=== PATIENT | female | born 1995 | race Caucasian/White ===

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

== ENCOUNTER → 2017-05-06 | Outpatient (CLI) | payer OTHER | LOC: M LAB 14:43 | DX: M54.5 Low back pain (principal) | CPT/HCPCS: 72114 ==

== ENCOUNTER → 2017-07-14 | Outpatient (CLI) | payer OTHER ==
[2017-07-14 16:01] LABS: BASO % 0.3 % (0.0-1.0); EOS % 0.5 % (0.0-3.0); HEMATOCRIT 45.5 % (36.0-47.0); HEMOGLOBIN 15.4 g/dl (12.0-15.5); IMMATURE GRANULOCYTE % 0.1 % (0-3.0); LYMPH # 2.2 10^3/uL (1.5-6.5); LYMPH % 29.3 % (24.0-44.0); MEAN CORPUSCULAR HEMOGLOBIN 31.3 pg (27.0-33.0); MEAN CORPUSCULAR HGB CONC 33.8 g/dl (32.0-36.5); MEAN CORPUSCULAR VOLUME 92.5 fl (80.0-96.0); MONO # 0.5 10^3/uL (0.0-0.8); MONO % 6.5 % (0.0-5.0); NEUTROPHILS # 4.8 10^3/uL (1.8-7.7); NEUTROPHILS % 63.3 % (36.0-66.0); PLATELET COUNT, AUTOMATED 205 10^3/uL (150-450); RED BLOOD COUNT 4.92 10^6/uL (4.00-5.40); RED CELL DISTRIBUTION WIDTH 12.3 % (11.5-14.5); WHITE BLOOD COUNT 7.6 10^3/uL (4.0-10.0)
[2017-07-14 16:26] LABS: ALBUMIN 4.1 GM/DL (3.2-5.2); ALBUMIN/GLOBULIN RATIO 1.05 (1.00-1.93); ALKALINE PHOSPHATASE 57 U/L (45-117); ALT/SGPT 64 U/L (12-78); ANION GAP 6 MEQ/L (8-16); AST/SGOT 49 U/L (7-37); BILIRUBIN,TOTAL 0.4 MG/DL (0.2-1.0); BLOOD UREA NITROGEN 10 MG/DL (7-18); CALCIUM LEVEL 9.3 MG/DL (8.5-10.1); CARBON DIOXIDE LEVEL 28 MEQ/L (21-32); CHLORIDE LEVEL 110 MEQ/L (98-107); CREATININE FOR GFR 0.68 MG/DL (0.55-1.30); GLUCOSE, FASTING 72 MG/DL (70-100); POTASSIUM SERUM 4.1 MEQ/L (3.5-5.1); SODIUM LEVEL 144 MEQ/L (136-145)
[2017-07-19 14:11] LABS: HEPATITIS C QUANTITATION 34420 IU/mL (.)
== END ==
LOC: M LAB 15:25
DX: R76.0 Raised antibody titer (principal)
CPT/HCPCS: 80053

== ENCOUNTER 2017-08-17 17:08 | Emergency (ER) | payer OTHER | END 2017-08-17 21:44 | disposition left against medical advice (07) | LOC: M ED 17:08 | DX: Z53.29 Procedure and treatment not carried out because of patient's decision for other reasons (principal) ==

== ENCOUNTER 2017-09-07 17:14 | Emergency (ER) | payer OTHER ==
[2017-09-07 18:14] LABS: HEMATOCRIT 42.2 % (36.0-47.0); HEMOGLOBIN 14.1 g/dl (12.0-15.5); MEAN CORPUSCULAR HEMOGLOBIN 30.9 pg (27.0-33.0); MEAN CORPUSCULAR HGB CONC 33.4 g/dl (32.0-36.5); MEAN CORPUSCULAR VOLUME 92.5 fl (80.0-96.0); PLATELET COUNT, AUTOMATED 157 10^3/uL (150-450); RED BLOOD COUNT 4.56 10^6/uL (4.00-5.40); RED CELL DISTRIBUTION WIDTH 13.3 % (11.5-14.5); WHITE BLOOD COUNT 10.5 10^3/uL (4.0-10.0)
[2017-09-07 18:26] LABS: AMPHETAMINES LEVEL URINE NEGATIVE (NEGATIVE); BARBITURATES URINE NEGATIVE (NEGATIVE); BENZODIAZEPINES URINE NEGATIVE (NEGATIVE); CANNABINOIDS URINE POSITIVE (NEGATIVE); COCAINE METABOLITE URINE NEGATIVE (NEGATIVE); METHADONE URINE NEGATIVE (NEGATIVE); OPIATES URINE POSITIVE (NEGATIVE); PHENCYCLIDINE URINE NEGATIVE (NEGATIVE)
[2017-09-07 18:35] LABS: ALBUMIN 3.5 GM/DL (3.2-5.2); ALKALINE PHOSPHATASE 62 U/L (45-117); ALT/SGPT 26 U/L (12-78); ANION GAP 9 MEQ/L (8-16); AST/SGOT 36 U/L (7-37); BILIRUBIN,DIRECT 0.1 MG/DL (0.0-0.2); BILIRUBIN,TOTAL 0.4 MG/DL (0.2-1.0); BLOOD UREA NITROGEN 8 MG/DL (7-18); CALCIUM LEVEL 8.6 MG/DL (8.5-10.1); CARBON DIOXIDE LEVEL 26 MEQ/L (21-32); CHLORIDE LEVEL 108 MEQ/L (98-107); CREATININE FOR GFR 0.77 MG/DL (0.55-1.30); ETHYL ALCOHOL (ETHANOL) < 0.003 % (0.000-0.010); GLUCOSE, FASTING 88 MG/DL (70-100); POTASSIUM SERUM 3.5 MEQ/L (3.5-5.1); SALICYLATE LEVEL 1.9 MG/DL (5.0-30.0); SODIUM LEVEL 143 MEQ/L (136-145); THYROID STIMULATING HORMONE 0.468 uIU/ML (0.463-3.98); TOTAL PROTEIN 7.4 GM/DL (6.4-8.2)
[2017-09-07 18:41] LABS: ACETAMINOPHEN LEVEL < 2.0 UG/ML (10.0-30.0)
[2017-09-07 19:09] LABS: CONTROL LINE HCG INT CTR LINE PRESENT; HCG, SERUM QUALITATIVE NEGATIVE (NEGATIVE)
== END 2017-09-07 19:47 | disposition home or self-care (01) ==
LOC: M ED 17:14
DX: F39 Unspecified mood [affective] disorder (principal); Z79.3 Long term (current) use of hormonal contraceptives
CPT/HCPCS: 80320

== ENCOUNTER 2018-06-08 23:42 | Emergency (ER) | payer OTHER ==
[~2018-06-08] VITALS: Ht 170.2 cm; Wt 68.2 kg
[~2018-06-08 23:42] MED LIST changes: +NEXP1IMP SC
[2018-06-09] MEDS ORDERED: MACR100C43 PO (01:12)
[2018-06-09] MEDS ORDERED: PYRI1TAB5 PO (01:12)
[2018-06-09] MEDS ORDERED: PHENAZOPYRIDINE 100 MG TAB PO ONE (01:15)
[2018-06-09] MEDS ORDERED: NITROFURANTOIN (MACROBID) 100 MG CAP PO ONE (01:15)
[2018-06-09 01:30] VITALS: BP 125/75
== END 2018-06-09 01:31 | disposition home or self-care (01) ==
LOC: M ED 23:42
DX: N39.0 Urinary tract infection, site not specified (principal); J45.909 Unspecified asthma, uncomplicated; F41.9 Anxiety disorder, unspecified; Z79.3 Long term (current) use of hormonal contraceptives

== ENCOUNTER 2018-09-20 17:11 | Emergency (ER) | payer OTHER ==
[~2018-09-20] VITALS: Ht 172.7 cm; Wt 65.9 kg
[~2018-09-20 17:11] MED LIST changes: +MACR100C43 PO; +PYRI1TAB5 PO
[2018-09-20 17:12] VITALS: BP 142/100
[2018-09-20] MEDS ORDERED: cloNIDine HCL 0.3 MG/24 HR PATCH TOP STA (17:31)
[2018-09-20] MEDS ORDERED: KETOROLAC 30 MG/ML VIAL (J1885) IV ONE (17:45)
[2018-09-20] MEDS ORDERED: NS 1,000 ML IV ONE (17:45)
[2018-09-20] MEDS ORDERED: PROMETHAZINE INJ 25 MG/ML VIAL (J2550) IV ONE (17:45)
[2018-09-20] MEDS ORDERED: KETOROLAC 60 MG/2 ML VIAL (J1885) IM ONE (19:00)
[2018-09-20] MEDS ORDERED: PROMETHAZINE INJ 25 MG/ML VIAL (J2550) IM ONE (19:00)
[2018-09-20] MEDS ORDERED: REGL10TA6 PO (19:02)
[2018-09-20] MEDS ORDERED: KETO10TAB PO (19:02)
== END 2018-09-20 19:30 | disposition home or self-care (01) ==
LOC: M ED 17:11
DX: F11.10 Opioid abuse, uncomplicated (principal); B19.20 Unspecified viral hepatitis C without hepatic coma; Z79.3 Long term (current) use of hormonal contraceptives
CPT/HCPCS: 96372; 99283; J1885

== ENCOUNTER 2018-09-21 12:27 | Emergency (ER) | payer OTHER ==
[~2018-09-21] VITALS: Ht 172.7 cm; Wt 65.9 kg
[~2018-09-21 12:27] MED LIST changes: +KETO10TAB PO; +REGL10TA6 PO
[2018-09-21 12:28] VITALS: BP 136/94
== END 2018-09-21 13:30 | disposition left against medical advice (07) ==
LOC: M ED 12:27
DX: Z53.29 Procedure and treatment not carried out because of patient's decision for other reasons (principal)

== ENCOUNTER → 2019-01-09 | Outpatient (CLI) | payer OTHER ==
[2019-01-09 23:29] LABS: HIV 1&2 SCREEN CENTAUR NEGATIVE (NEGATIVE)
[2019-01-11 08:06] LABS: HSV TYPE II IgG SPECIFIC <0.91 index (0.00-0.90)
[2019-01-11 10:29] LABS: HEPATITIS C VIRUS ABY INDEX > 11.0 INDEX (<0.8)
== END ==
LOC: M LAB 16:14
PROVIDERS: ATTEND Nurse Practitioner Family
DX: Z11.3 Encounter for screening for infections with a predominantly sexual mode of transmission (principal)

== ENCOUNTER 2019-03-10 16:08 | Emergency (ER) | payer OTHER ==
[~2019-03-10] VITALS: Ht 170.2 cm; Wt 65.9 kg
[2019-03-10 17:10] LABS: BASO % 0.2 % (0.0-1.0); EOS % 0.2 % (0.0-3.0); HEMATOCRIT 48.7 % (36.0-47.0); HEMOGLOBIN 16.2 g/dl (12.0-15.5); LYMPH % 24.6 % (24.0-44.0); MEAN CORPUSCULAR HEMOGLOBIN 29.7 pg (27.0-33.0); MEAN CORPUSCULAR HGB CONC 33.3 g/dl (32.0-36.5); MEAN CORPUSCULAR VOLUME 89.2 fl (80.0-96.0); MONO # 0.5 10^3/uL (0.0-0.8); MONO % 5.7 % (0.0-5.0); NEUTROPHILS # 5.5 10^3/uL (1.5-8.5); NEUTROPHILS % 68.9 % (36.0-66.0); PLATELET COUNT, AUTOMATED 269 10^3/uL (150-450); RED BLOOD COUNT 5.46 10^6/uL (4.00-5.40)
[2019-03-10] MEDS ORDERED: ONDANSETRON 4 MG ORAL DISINTEGRATING TAB (Q0162 PER 1MG) PO ONE (17:15)
[2019-03-10] MEDS ORDERED: ONDA4TAB6 PO (17:25)
[2019-03-10 17:39] LABS: ALBUMIN 4.4 GM/DL (3.2-5.2); ALT/SGPT 8 U/L (12-78); BILIRUBIN,TOTAL 0.3 MG/DL (0.2-1.0); BLOOD UREA NITROGEN 9 MG/DL (7-18); CALCIUM LEVEL 9.6 MG/DL (8.5-10.1); CARBON DIOXIDE LEVEL 22 MEQ/L (21-32); CHLORIDE LEVEL 110 MEQ/L (98-107); CREATININE FOR GFR 0.74 MG/DL (0.55-1.30); GLOMERULAR FILTRATION RATE > 60.0 (>60); GLUCOSE, FASTING 107 MG/DL (70-100); POTASSIUM SERUM 3.9 MEQ/L (3.5-5.1); SODIUM LEVEL 142 MEQ/L (136-145); TOTAL PROTEIN 8.3 GM/DL (6.4-8.2)
[2019-03-10 17:43] VITALS: BP 114/86
[2019-03-13 10:00] LABS: HEPATITIS A ANTIBODY IGM NEGATIVE (NEGATIVE); HEPATITIS B CORE ANTIBODY IGM NEGATIVE (NEGATIVE); HEPATITIS B SURFACE ANTIGEN NEGATIVE (NEGATIVE)
[2019-03-13 10:01] LABS: HEPATITIS C VIRUS ABY INDEX > 11.0 INDEX (<0.8)
== END 2019-03-10 17:35 | disposition home or self-care (01) ==
LOC: M ED 16:08
DX: A09 Infectious gastroenteritis and colitis, unspecified (principal); F17.200 Nicotine dependence, unspecified, uncomplicated; Z87.898 Personal history of other specified conditions; Z79.3 Long term (current) use of hormonal contraceptives; Z88.8 Allergy status to other drugs, medicaments and biological substances
CPT/HCPCS: 80053; 81001; 84702; 85025; 86705; 86709; 86803; 87086; 87340; 87521; 99283; Q0162

== ENCOUNTER 2019-05-07 16:32 | Emergency (ER) | payer OTHER ==
[~2019-05-07] VITALS: Ht 170.2 cm; Wt 67.2 kg
[~2019-05-07 16:32] MED LIST changes: +ONDA4TAB6 PO
[2019-05-07] MEDS ORDERED: METH10TA2 PO (16:48)
[2019-05-07] MEDS ORDERED: METH-872 PO (17:25)
[2019-05-07] MEDS ORDERED: METHADONE 10 MG TAB (S0109) PO ONE (17:30)
[2019-05-07 18:07] LABS: INFLUENZA A AMPLIFICATION NEGATIVE (NEGATIVE); INFLUENZA B AMPLIFICATION NEGATIVE (NEGATIVE)
[2019-05-07] MEDS ORDERED: ONDA4TAB6 PO (18:18)
[2019-05-07] MEDS ORDERED: ONDANSETRON 4 MG ORAL DISINTEGRATING TAB (Q0162 PER 1MG) As Ordered ONE (18:29)
[2019-05-07] MEDS ORDERED: ONDANSETRON 4 MG ORAL DISINTEGRATING TAB (Q0162 PER 1MG) PO ONE (18:30)
[2019-05-07 18:35] VITALS: BP 126/69
== END 2019-05-07 18:47 | disposition home or self-care (01) ==
LOC: M ED 16:32
DX: F11.23 Opioid dependence with withdrawal (principal); R11.2 Nausea with vomiting, unspecified; R10.30 Lower abdominal pain, unspecified; J45.909 Unspecified asthma, uncomplicated; Z86.19 Personal history of other infectious and parasitic diseases; F17.200 Nicotine dependence, unspecified, uncomplicated; F12.10 Cannabis abuse, uncomplicated; Z79.3 Long term (current) use of hormonal contraceptives; Z79.899 Other long term (current) drug therapy; Z88.8 Allergy status to other drugs, medicaments and biological substances
CPT/HCPCS: 87502; 99283; Q0162

== ENCOUNTER 2019-05-15 20:02 | Emergency (ER) | payer OTHER ==
[~2019-05-15] VITALS: Ht 170.2 cm; Wt 65.9 kg
[2019-05-15 20:02] VITALS: BP 136/72
[~2019-05-15 20:02] MED LIST changes: +METH-872 PO; +METH10TA2 PO
[2019-05-15] MEDS ORDERED: ROBA750T4 PO (21:56)
[2019-05-15] MEDS ORDERED: PRED10TA2 PO (21:56)
[2019-05-15] MEDS: methocarbamoL 750 MG TAB PO ONE (21:59)
[2019-05-15] MEDS ORDERED: predniSONE 20 MG TAB PO ONE (22:00)
== END 2019-05-15 22:03 | disposition home or self-care (01) ==
LOC: M ED 20:02
DX: M62.830 Muscle spasm of back (principal); G89.29 Other chronic pain; M54.9 Dorsalgia, unspecified; Z86.19 Personal history of other infectious and parasitic diseases; F11.10 Opioid abuse, uncomplicated; Z79.3 Long term (current) use of hormonal contraceptives; Z79.899 Other long term (current) drug therapy; Z88.8 Allergy status to other drugs, medicaments and biological substances

== ENCOUNTER 2019-05-17 03:10 | Emergency (ER) | payer OTHER ==
[~2019-05-17] VITALS: Ht 170.2 cm; Wt 68.0 kg
[~2019-05-17 03:10] MED LIST changes: +PRED10TA2 PO; +ROBA750T4 PO
[2019-05-17] MEDS ORDERED: METHOCARBAMOL 1,000 MG/10 ML VIAL (J2800) IM ONE (04:15)
--- NOTE | 2019-05-17 04:31 | REPVR ---
PROCEDURE INFORMATION: Exam: CT Lumbar Spine Without Contrast Exam date and time: 05/17/2019 3:23 AM Age: 23 years old Clinical indication: Low back pain TECHNIQUE: Imaging protocol: Computed tomography images of the lumbar spine without contrast. Radiation optimization: All CT scans at this facility use at least one of these dose optimization techniques: automated exposure control; mA and/or kV adjustment per patient size (includes targeted exams where dose is matched to clinical indication); or iterative reconstruction. COMPARISON: CR Spine,LS wBENDING MIN 6 VIEWS 05/06/2017 3:07 PM FINDINGS: Vertebrae: No acute fracture. Normal alignment. Discs/Spinal canal/Neural foramina: No disc herniations. No spinal canal stenosis. No neural foraminal narrowing. Soft tissues: Unremarkable. IMPRESSION: No acute findings. Electronically signed by: Jean Alcaraz On 05/17/2019 04:30:42 AM
[2019-05-17 04:44] VITALS: BP 110/65
[2019-05-17] MEDS ORDERED: KETOROLAC 60 MG/2 ML VIAL (J1885) IM ONE (04:45)
[2019-05-17] MEDS ORDERED: ONDANSETRON 4 MG ORAL DISINTEGRATING TAB (Q0162 PER 1MG) As Ordered ONE (05:06)
[2019-05-17] MEDS ORDERED: ONDANSETRON 4 MG ORAL DISINTEGRATING TAB (Q0162 PER 1MG) PO ONE (05:15)
[2019-05-18] MEDS ORDERED: MACR100C43 PO (16:57)
[2019-05-18] MEDS ORDERED: LIDO5DIS41 TOP (16:57)
== END 2019-05-17 05:23 | disposition home or self-care (01) ==
LOC: M ED 03:10
DX: M54.5 Low back pain (principal); F11.10 Opioid abuse, uncomplicated; Z86.19 Personal history of other infectious and parasitic diseases; Z79.899 Other long term (current) drug therapy; Z88.8 Allergy status to other drugs, medicaments and biological substances
CPT/HCPCS: 72131; 96372; 99283; J1885; J2800; Q0162

== ENCOUNTER 2019-05-18 15:38 | Emergency (ER) | payer OTHER ==
[~2019-05-18] VITALS: Ht 170.2 cm; Wt 66.9 kg
[2019-05-18] MEDS ORDERED: LIDOCAINE 5% (LIDODERM) PATCH TD ONE (16:30)
[2019-05-18 16:48] LABS: APPEARANCE, URINE CLEAR (CLEAR); BACTERIA, URINE AUTO 1+ (NEGATIVE); BILIRUBIN, URINE AUTO 2+ (NEGATIVE); BLOOD, URINE BLOOD NEGATIVE (NEGATIVE); COLOR, URINE YELLOW (YELLOW); GLUCOSE, URINE (UA) AUTO NEGATIVE (NEGATIVE); KETONE, URINE AUTO NEGATIVE (NEGATIVE); LEUKOCYTE ESTERASE, URINE AUTO 1+ (NEGATIVE); MUCUS, URINE SMALL (NEGATIVE); NITRITE, URINE AUTO NEGATIVE (NEGATIVE); PROTEIN, URINE AUTO NEGATIVE (NEGATIVE); RBC, URINE AUTO 2 /HPF (0-3); SQUAMOUS EPITHELIAL CELL UR AU 1 /HPF (0-6); UROBILINOGEN, URINE AUTO 0.2 mg/dL (0.0-2.0); WBC, URINE AUTO 5 /HPF (0-3)
[2019-05-18 16:53] LABS: BASO % 0.2 % (0.0-1.0); EOS % 0.1 % (0.0-3.0); HEMATOCRIT 42.2 % (36.0-47.0); HEMOGLOBIN 14.1 g/dl (12.0-15.5); LYMPH # 1.6 10^3/uL (1.5-5.0); LYMPH % 9.4 % (24.0-44.0); MEAN CORPUSCULAR HEMOGLOBIN 29.5 pg (27.0-33.0); MEAN CORPUSCULAR HGB CONC 33.4 g/dl (32.0-36.5); MEAN CORPUSCULAR VOLUME 88.3 fl (80.0-96.0); MONO # 0.7 10^3/uL (0.0-0.8); NEUTROPHILS # 14.2 10^3/uL (1.5-8.5); NEUTROPHILS % 85.6 % (36.0-66.0); PLATELET COUNT, AUTOMATED 301 10^3/uL (150-450); RED BLOOD COUNT 4.78 10^6/uL (4.00-5.40); WHITE BLOOD COUNT 16.6 10^3/uL (4.0-10.0)
[2019-05-18] MEDS ORDERED: LIDO5DIS41 TOP (16:57)
[2019-05-18] MEDS ORDERED: MACR100C43 PO (16:57)
[2019-05-18 16:59] VITALS: BP 140/78
[2019-05-18] MEDS ORDERED: **NOTE PATIENT COMMENT** MISC XX SCH (21:00)
== END 2019-05-18 17:05 | disposition home or self-care (01) ==
LOC: M ED 15:38
DX: M54.5 Low back pain (principal); N39.0 Urinary tract infection, site not specified; X50.1XXA Overexertion from prolonged static or awkward postures, initial encounter; Y92.89 Other specified places as the place of occurrence of the external cause; Y93.89 Activity, other specified; Y99.0 Civilian activity done for income or pay; Z79.3 Long term (current) use of hormonal contraceptives; Z79.899 Other long term (current) drug therapy; Z88.8 Allergy status to other drugs, medicaments and biological substances

== ENCOUNTER 2019-05-30 16:54 | Emergency (ER) | payer OTHER ==
[~2019-05-30] VITALS: Ht 170.2 cm; Wt 66.6 kg
[~2019-05-30 16:54] MED LIST changes: +LIDO5DIS41 TOP
[2019-05-30] MEDS ORDERED: CYCL10TA PO (18:11)
[2019-05-30 18:18] VITALS: BP 126/70
== END 2019-05-30 18:24 | disposition home or self-care (01) ==
LOC: M ED 16:54
DX: M54.5 Low back pain (principal); Z79.3 Long term (current) use of hormonal contraceptives; Z79.899 Other long term (current) drug therapy; Z88.8 Allergy status to other drugs, medicaments and biological substances

== ENCOUNTER 2019-08-07 10:31 | Emergency (ER) | payer OTHER ==
[~2019-08-07] VITALS: Ht 172.7 cm; Wt 66.2 kg
[~2019-08-07 10:31] MED LIST changes: +CYCL-707 PO
[2019-08-07 10:32] VITALS: BP 109/66
[2019-08-07] MEDS ORDERED: BUPR75TA5 (10:40)
[2019-08-07] MEDS ORDERED: METH10TA2 PO (10:40)
[2019-08-07] MEDS ORDERED: KETOROLAC 30 MG/ML 1ML VIAL IM ONE (11:00)
[2019-08-07] MEDS ORDERED: methocarbamoL 750 MG TAB PO ONE (11:00)
[2019-08-07] MEDS ORDERED: NAPR-885 PO (11:36)
[2019-08-07] MEDS ORDERED: METH1TAB40 PO (11:36)
[2019-08-07] MEDS ORDERED: ONDANSETRON 4 MG ORAL DISINTEGRATING TAB PO ONE (11:45)
== END 2019-08-07 11:43 | disposition home or self-care (01) ==
LOC: M ED 10:31
DX: S39.012A Strain of muscle, fascia and tendon of lower back, initial encounter (principal); X58.XXXA Exposure to other specified factors, initial encounter; Y92.89 Other specified places as the place of occurrence of the external cause; Z88.8 Allergy status to other drugs, medicaments and biological substances; Z79.890 Hormone replacement therapy; Z79.3 Long term (current) use of hormonal contraceptives
CPT/HCPCS: 96372; 99282; J1885; Q0162

== ENCOUNTER 2019-08-20 14:45 | Emergency (ER) | payer OTHER ==
[~2019-08-20] VITALS: Ht 172.7 cm; Wt 64.6 kg
[~2019-08-20 14:45] MED LIST changes: +BUPR75TA5; +METH1TAB40 PO; +NAPR-885 PO
[2019-08-20] MEDS ORDERED: NS 1,000 ML IV ONE (16:30)
[2019-08-20] MEDS ORDERED: ONDANSETRON 4MG/2ML VIAL IV ONE (16:30)
[2019-08-20] MEDS ORDERED: KETOROLAC 30 MG/ML 1ML VIAL IV ONE (16:30)
[2019-08-20 17:09] LABS: BASO % 0.3 % (0.0-1.0); EOS # 0.1 10^3/uL (0.0-0.5); HEMATOCRIT 39.3 % (36.0-47.0); HEMOGLOBIN 12.5 g/dl (12.0-15.5); LYMPH # 2.5 10^3/uL (1.5-5.0); LYMPH % 36.6 % (24.0-44.0); MEAN CORPUSCULAR HEMOGLOBIN 27.2 pg (27.0-33.0); MEAN CORPUSCULAR HGB CONC 31.8 g/dl (32.0-36.5); MEAN CORPUSCULAR VOLUME 85.6 fl (80.0-96.0); MONO # 0.4 10^3/uL (0.0-0.8); MONO % 6.1 % (0.0-5.0); NEUTROPHILS # 3.7 10^3/uL (1.5-8.5); NEUTROPHILS % 55.6 % (36.0-66.0); PLATELET COUNT, AUTOMATED 365 10^3/uL (150-450); RED BLOOD COUNT 4.59 10^6/uL (4.00-5.40); WHITE BLOOD COUNT 6.7 10^3/uL (4.0-10.0)
[2019-08-20 17:40] LABS: ALT/SGPT 11 U/L (12-78); BILIRUBIN,DIRECT < 0.1 MG/DL (0.0-0.2); BILIRUBIN,TOTAL 0.2 MG/DL (0.2-1.0); BLOOD UREA NITROGEN 10 MG/DL (7-18); CALCIUM LEVEL 8.8 MG/DL (8.5-10.1); CARBON DIOXIDE LEVEL 27 MEQ/L (21-32); CHLORIDE LEVEL 104 MEQ/L (98-107); CREATININE FOR GFR 0.71 MG/DL (0.55-1.30); GLOMERULAR FILTRATION RATE > 60.0 (>60); GLUCOSE, FASTING 79 MG/DL (70-100); LIPASE 70 U/L (73-393); POTASSIUM SERUM 3.8 MEQ/L (3.5-5.1); SODIUM LEVEL 137 MEQ/L (136-145); TOTAL PROTEIN 7.8 GM/DL (6.4-8.2)
[2019-08-20] MEDS ORDERED: ZOFR4TAB16 PO (18:43)
[2019-08-20 18:45] VITALS: BP 114/67
--- NOTE | 2019-08-20 23:10 | REP ---
ABDOMINAL SERIES: Supine and erect views of the abdomen demonstrate no free air and no evidence of bowel obstruction. There is moderate diffuse fecal material seen throughout the colon. No dilated small bowel loops are seen. No abnormal calcifications are seen. An accompanying view of the chest demonstrates no acute infiltrate. Heart and mediastinum are within normal limits. IMPRESSION: No free air or obstruction. Moderate diffuse fecal material throughout the colon. No acute infiltrate in either lung. Electronically Signed by Jeevan Kiran MD 08/21/2019 01:14 P
== END 2019-08-20 19:00 | disposition home or self-care (01) ==
LOC: M ED 14:45
DX: K52.9 Noninfective gastroenteritis and colitis, unspecified (principal); J45.909 Unspecified asthma, uncomplicated; B19.20 Unspecified viral hepatitis C without hepatic coma; F19.10 Other psychoactive substance abuse, uncomplicated; Z79.891 Long term (current) use of opiate analgesic; Z79.3 Long term (current) use of hormonal contraceptives; Z88.8 Allergy status to other drugs, medicaments and biological substances; F17.210 Nicotine dependence, cigarettes, uncomplicated
CPT/HCPCS: 36415; 74021; 80048; 80076; 81001; 83690; 85025; 87086; 96361; 96374; 96375; 99284; J1885; J2405

== ENCOUNTER 2019-10-30 02:47 | Emergency (ER) | payer OTHER ==
[~2019-10-30 02:47] MED LIST changes: +BACTRIM 160MG/800MG DS TAB As Ordered ONE; +BACTRIM 160MG/800MG DS TAB ONE; +PHENAZOPYRIDINE 100 MG TAB As Ordered ONE; +PHENAZOPYRIDINE 100 MG TAB ONE; +ZOFR4TAB16 PO
[2019-12-14 11:18] LABS: APPEARANCE, URINE TURBID (CLEAR); BACTERIA, URINE AUTO 3+ (NEGATIVE); BILIRUBIN, URINE AUTO 1+ (NEGATIVE); BLOOD, URINE BLOOD 1+ (NEGATIVE); COLOR, URINE AMBER (YELLOW); GLUCOSE, URINE (UA) AUTO NEGATIVE (NEGATIVE); KETONE, URINE AUTO TRACE mg/dL (NEGATIVE); LEUKOCYTE ESTERASE, URINE AUTO NEGATIVE (NEGATIVE); MUCUS, URINE LARGE (NEGATIVE); NITRITE, URINE AUTO NEGATIVE (NEGATIVE); PROTEIN, URINE AUTO 2+ mg/dL (NEGATIVE); RBC, URINE AUTO 24 /HPF (0-3); SQUAMOUS EPITHELIAL CELL UR AU 143 /HPF (0-6); WBC, URINE AUTO 119 /HPF (0-3)
== END 2019-10-30 02:50 | disposition home or self-care (01) ==
LOC: M ED 02:47
DX: N39.0 Urinary tract infection, site not specified (principal); Z79.899 Other long term (current) drug therapy; Z88.8 Allergy status to other drugs, medicaments and biological substances

== ENCOUNTER → 2019-11-03 | Outpatient (CLI) | payer OTHER ==
[~2019-11-03] MED LIST changes: -BACTRIM 160MG/800MG DS TAB As Ordered ONE; -BACTRIM 160MG/800MG DS TAB ONE; -PHENAZOPYRIDINE 100 MG TAB As Ordered ONE; -PHENAZOPYRIDINE 100 MG TAB ONE
[2019-12-09 12:31] LABS: CHLAMYDIA DNA AMPLIFICATION NEGATIVE (NEGATIVE); GC DNA AMPLIFICATION NEGATIVE (NEGATIVE)
[2019-12-21 20:42] LABS: HEMATOCRIT 41.9 % (36.0-47.0); HEMOGLOBIN 13.7 g/dl (12.0-15.5); MEAN CORPUSCULAR HEMOGLOBIN 28.1 pg (27.0-33.0); MEAN CORPUSCULAR HGB CONC 32.7 g/dl (32.0-36.5); MEAN CORPUSCULAR VOLUME 85.9 fl (80.0-96.0); PLATELET COUNT, AUTOMATED 244 10^3/uL (150-450); RED BLOOD COUNT 4.88 10^6/uL (4.00-5.40); WHITE BLOOD COUNT 5.7 10^3/uL (4.0-10.0)
[2019-12-31 23:03] LABS: ALBUMIN 3.4 GM/DL (3.2-5.2); ALT/SGPT 17 U/L (12-78); BILIRUBIN,TOTAL 0.2 MG/DL (0.2-1.0); BLOOD UREA NITROGEN 15 MG/DL (7-18); CALCIUM LEVEL 8.9 MG/DL (8.5-10.1); CARBON DIOXIDE LEVEL 27 MEQ/L (21-32); CHLORIDE LEVEL 108 MEQ/L (98-107); CREATININE FOR GFR 0.73 MG/DL (0.55-1.30); GLOMERULAR FILTRATION RATE > 60.0 (>60); GLUCOSE, FASTING 94 MG/DL (70-100); HEPATITIS B SURFACE ANTIGEN NEGATIVE (NEGATIVE); HIV 1&2 SCREEN CENTAUR NEGATIVE (NEGATIVE); POTASSIUM SERUM 4.4 MEQ/L (3.5-5.1); SODIUM LEVEL 138 MEQ/L (136-145); TOTAL PROTEIN 7.9 GM/DL (6.4-8.2)
[2019-12-31 23:06] LABS: HEPATITIS C VIRUS ABY INDEX > 11.0 INDEX (<0.8)
[2019-12-31 23:09] LABS: HCG, SERUM QUALITATIVE NEGATIVE (NEGATIVE)
== END ==
LOC: M LAB 10:30
PROVIDERS: ATTEND Family Medicine
DX: F11.10 Opioid abuse, uncomplicated (principal)

== ENCOUNTER 2020-06-08 22:14 | Inpatient (IN) | payer MEDICAID, OTHER ==
[~2020-06-08] VITALS: Ht 172.7 cm; Wt 56.0 kg
[~2020-06-08 22:14] MED LIST changes: +METH-1164 PO; -METH-872 PO; +METH10TA3 PO; -METH1TAB40 PO
[2020-06-08] MEDS ORDERED: NALOXONE 2MG/2ML SYRINGE (J2310 PER 1MG) IV STA (22:17)
[2020-06-08] MEDS ORDERED: NS 1,000 ML IV ONE (22:20)
[2020-06-08 22:39] LABS: HEMATOCRIT 40.2 % (36.0-47.0); HEMOGLOBIN 13.6 g/dl (12.0-15.5); MEAN CORPUSCULAR HEMOGLOBIN 29.9 pg (27.0-33.0); MEAN CORPUSCULAR HGB CONC 33.8 g/dl (32.0-36.5); MEAN CORPUSCULAR VOLUME 88.4 fl (80.0-96.0); PLATELET COUNT, AUTOMATED 200 10^3/uL (150-450); RED BLOOD COUNT 4.55 10^6/uL (4.00-5.40); WHITE BLOOD COUNT 7.8 10^3/uL (4.0-10.0)
[2020-06-08 23:11] LABS: HCG, SERUM QUALITATIVE NEGATIVE (NEGATIVE)
[2020-06-08 23:18] LABS: RSV AMPLIFICATION NEGATIVE (NEGATIVE)
[2020-06-08 23:20] LABS: ACETAMINOPHEN LEVEL < 2.0 UG/ML (10.0-30.0); ALBUMIN 3.4 GM/DL (3.2-5.2); ALT/SGPT 18 U/L (12-78); BILIRUBIN,DIRECT 0.1 MG/DL (0.0-0.2); BILIRUBIN,TOTAL 0.1 MG/DL (0.2-1.0); BLOOD UREA NITROGEN 14 MG/DL (7-18); CALCIUM LEVEL 8.9 MG/DL (8.5-10.1); CARBON DIOXIDE LEVEL 28 MEQ/L (21-32); CHLORIDE LEVEL 107 MEQ/L (98-107); CREATININE FOR GFR 0.56 MG/DL (0.55-1.30); ETHYL ALCOHOL (ETHANOL) < 0.003 % (0.000-0.010); GLOMERULAR FILTRATION RATE > 60.0 (>60); GLUCOSE, FASTING 95 MG/DL (70-100); POTASSIUM SERUM 3.6 MEQ/L (3.5-5.1); SALICYLATE LEVEL < 1.7 MG/DL (5.0-30.0); SODIUM LEVEL 142 MEQ/L (136-145); TOTAL PROTEIN 7.1 GM/DL (6.4-8.2)
--- NOTE | 2020-06-08 23:56 | REPVR ---
PROCEDURE INFORMATION: Exam: XR Chest Exam date and time: 06/08/2020 11:33 PM Age: 24 years old Clinical indication: Other: Altered mental status TECHNIQUE: Imaging protocol: XR of the chest Views: 1 view. COMPARISON: CR Abdomen,Flat Upright,PA CHEST 08/20/2019 4:26 PM FINDINGS: Lungs: There is decreased inflation of the lungs. No focal infiltrates. Pleural spaces: Unremarkable. No pleural effusion. No pneumothorax. Heart/Mediastinum: Unremarkable. No cardiomegaly. Bones/joints: Unremarkable. IMPRESSION: Stable poor inspiratory chest without significant change from 08/20/2019. Electronically signed by: Jose Guadalupe Caceres On 06/08/2020 23:56:31 PM
[2020-06-09 02:48] LABS: AMPHETAMINES LEVEL URINE POSITIVE (NEGATIVE); BARBITURATES URINE NEGATIVE (NEGATIVE); BENZODIAZEPINES URINE NEGATIVE (NEGATIVE); CANNABINOIDS URINE POSITIVE (NEGATIVE); COCAINE METABOLITE URINE NEGATIVE (NEGATIVE); METHADONE URINE NEGATIVE (NEGATIVE); OPIATES URINE POSITIVE (NEGATIVE); PHENCYCLIDINE URINE NEGATIVE (NEGATIVE)
[2020-06-09] MEDS ORDERED: MOM 30ML SUSPENSION UDC PO PRN (06:20)
[2020-06-09] MEDS ORDERED: ACETAMINOPHEN TAB 650MG DOSE (2X325MG) PO PRN (06:20)
[2020-06-09] MEDS ORDERED: MAALOX 30 ML SUSP *UDC PO PRN (06:20)
--- NOTE | 2020-06-09 08:21 | ECGEPIP ---
[facility] - ED Test Date: 2020-06-08 Pat Name: SIMA LINARES Department: Room: - Gender: Female [employer] Tabeler: Margarita KC : 1995 Requested By: CHUY MATHIS Order Number: [id number] Reading MD: Shaye Underwood Measurements Intervals Gilbert Rate: 64 P: 61 NH: 132 QRS: 35 QRSD: 90 T: 38 QT: 388 QTc: 400 Interpretive Statements Sinus rhythm with marked sinus arrhythmia No prior Electronically Signed on 06-09-2020 8:21:23 EDT by Shaye Underwood
[2020-06-09 09:39] VITALS: BP 132/81
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
[2020-06-09 16:11] VITALS: BP 140/83
--- NOTE | 2020-06-09 16:27 | HPEPDOC ---
[facility] Medical History & Physical Date of Admission Jun 09, 2020 Date of Service: Jun 09, 2020 History and Physical CHIEF COMPLAINT: suicidal ideation HISTORY OF PRESENT ILLNESS: 24 yo F with hx of Hep C (untreated), depression, suicidal attempts, polysubstance abuse, was brought to ER by EMS and Police after she sent suicidal text messages to her boyfriend, in context of using heroin and benzodiazepines. She was somnolent in the ER, received 4 mg of IV narcan. Hospitalist consulted for medical intake. Patient at this time denies chest pain, shortness of breath, palpitations, n/v/d or fevers. Vitals reviewed. T 98.4. HR 78. RR 16. BP 140/83. pulse ox 100% on RA. Labs review. WBC 7.8. Hgb 13.6. Hct 40.2. PLT 200. Na+ 142. K+ 3.6. Cr. 0.56. TSH 2.810. Hcg negative. UDS positive for opiates, amphetamines, cannabinoids. negative for etoh. PAST MEDICAL HISTORY: Hep C Bipolar disorder Depression Anxiety substance abuse (heroin, IVDU) PAST SURGICAL HISTORY: no prior surgical hx SOCIAL HISTORY: hx of polysubstance abuse denies ETOH FAMILY HISTORY: review with patient, no relevant family hx ALLERGIES: Please see below. REVIEW OF SYSTEMS: 10 point ROS completed, relevant findings noted in HPI. HOME MEDICATIONS: Please see below. PHYSICAL EXAMINATION: VITAL SIGNS: please see below General: NAD, comfortable HEENT: PERRLA, EOMI, sclerae clear Neck: supple, normal ROM, no JVD Respiratory: lungs CTAB, no wheeze, no rales, no crackles CVS: RRR, normal S1, S2, no murmurs Abdo: soft, no masses, no hepatosplenomegaly, BS+, no rebound tenderness Extremities: no edema, pulses 2+ MSK: no joint deformities, normal ROM Neuro: no focal neuro deficits, moving all 4 extremities, CN2-12 intact. Strength 5/5 in all 4 extremities. No nystagmus. Psych: calm, cooperative, AAO x 3 LABORATORY DATA: See below. IMAGING: CXR (06/09/20): Lungs: There is decreased inflation of the lungs. No focal infiltrates. Pleural spaces: Unremarkable. No pleural effusion. No pneumothorax. Heart/Mediastinum: Unremarkable. No cardiomegaly. Bones/joints: Unremarkable. IMPRESSION: Stable poor inspiratory chest without significant change from 08/20/2019. MICROBIOLOGY: Please see below. ASSESSMENT: 24 yo F with hx of depression, suicidal attempts, polysubstance abuse, was brought to ER by EMS and Police after she sent suicidal text messages to her boyfriend, while taking heroin, benzodiazepines. Hospitalist consulted for medical intake. PLAN: Suicidal ideation/drug use: per psychiatry Hep C: diagnosed 2 years ago. Hx of IVDU. Check viral load. Outpatient referral to Dr. Blake recommended. DVT ppx: early ambulation Thank you for the consult, please re-consult as needed. Vital Signs Vital Signs Date Time Temp Pulse Resp B/P (MAP) Pulse Ox O2 Delivery O2 Flow Rate FiO2 06/09/20 16:11 98.4 78 16 140/83 (102) 100 Room Air Laboratory Data Labs 24H Laboratory Tests 2 06/08/20 22:26: Nucleated Red Blood Cells % (auto) 0.0, Anion Gap 7L, Glomerular Filtration Rate > 60.0, Calcium Level 8.9, Total Bilirubin 0.1L, Direct Bilirubin 0.1, Aspartate Amino Transf (AST/SGOT) 30, Alanine Aminotransferase (ALT/SGPT) 18, Alkaline Phosphatase 75, Total Protein 7.1, Albumin 3.4, Albumin/Globulin Ratio 0.9L, Thyroid Stimulating Hormone (TSH) 2.810, Human Chorionic Gonadotropin, Qual NEGATIVE, Salicylates Level < 1.7L, Acetaminophen Level < 2.0L, Ethyl Alcohol Level < 0.003, Coronavirus (COVID-19)(PCR) NEGATIVE, Influenza Type A (RT-PCR) NEGATIVE, Influenza Type B (RT-PCR) NEGATIVE, Respiratory Syncytial Virus (PCR) NEGATIVE 06/09/20 02:09: Urine Opiates Screen POSITIVEH, Urine Methadone Screen NEGATIVE, Urine Barbiturates Screen NEGATIVE, Urine Phencyclidine Screen NEGATIVE, Urine Amphetamines Screen POSITIVEH, Urine Benzodiazepines Screen NEGATIVE, Urine Cocaine Metabolite Screen NEGATIVE, Urine Cannabinoids Screen POSITIVEH CBC/BMP Laboratory Tests 06/08/20 22:26 Home Medications No Active Prescriptions or Reported Meds Allergies Coded Allergies: lithium (Verified Allergy, Mild, itching, rash, 06/08/20) A-FIB/CHADSVASC A-FIB History Current/History of A-Fib/PAF?: No Current PO Anticoag Therapy: No KRISTIN MEDINA MD Jun 09, 2020 16:27
[2020-06-09 20:44] VITALS: BP 119/66
[2020-06-10 06:36] VITALS: BP 140/88
[2020-06-10 10:02] LABS: HEPATITIS B SURFACE ANTIBODY POSITIVE (POSITIVE); HEPATITIS B SURFACE ANTIGEN NEGATIVE (NEGATIVE)
[2020-06-10] MEDS: cloNIDine 0.1MG TABLET PO SCH ×3 (11:03→21:00)
--- NOTE | 2020-06-10 15:40 | MHIPNPDOC ---
[facility] Progress Note Progress Note DATE OF SERVICE: 06/10/20 HISTORY: * Pt is medically cleared, cooperative/pleasant however fairly guarded, admits to sending text to friend(s) last night expressing SI. PT states she remembers sending text and then did not answer when friend called/texted her back prompting friend to call 911. Pt minimizing, states she "only took a piece of a Xanax", however this contradicts what was reported by Police, states she does not remember coming to the hospital, does admit to using IV heroin yesterday as well. Pt admits to hx of Bipolar d/o, depression and anxiety, hx of SI as well but denies any prior attempts at self harm, admits to non-compliance with outpt tx and medications, "haven't been there([facility]) in a month". Pt denies HI/AH/VH, denies any other ETOH/drug use, states she is currently living alone as her BF is currently in intermediate. Pt remains pleasant but guarded and appears to be minimizing incident last night. Patient experiencing withdrawal symptoms today. Catapres added to her regimen. She denies suicidal ideation or intent. Anxious in the morning in bed in the afternoon VITAL SIGNS: See below. NEW TEST RESULTS: None. CURRENT MEDICATIONS: See below. MENTAL STATUS EXAMINATION: Patient is a 24-year old female, who is involved in drug use, which caused her m ood changes. Speech: Is. No gross disturbance. Language skills are intact. Thought processes including:. No gross disturbance. Thought content: Of gross disturbance. Abstract reasoning, and computation: Able to abstract. Description of associations:NO Loose associations. Description of abnormal or psychotic thoughts: No psychotic thought. Denies suicidal ideation. Judgment: Poor Insight: Limited. Orientation: 3. Recent and remote memory: Intact. Attention span and concentration: No gross disturbance. Language:. No gross disturbance. Fund of knowledge: Reasonable. Mood: Anxious. Affect:, Anxious. DIAGNOSES: 1., Opiate abuse. . ASSESSMENT: Patient withdrawing from heroin use. We'll reevaluate MANAGEMENT PLAN: As above. TIME SPENT: 25 minutes. Vital Signs Vital Signs Date Time Temp Pulse Resp B/P (MAP) Pulse Ox O2 Delivery O2 Flow Rate FiO2 06/10/20 11:03 140/88 06/10/20 08:28 Room Air 06/10/20 06:36 98.5 79 18 100 Laboratory Data 24H Labs Laboratory Tests 2 06/10/20 07:40: Hepatitis B Surface Antigen NEGATIVE, Hepatitis B Surface Antibody POSITIVE Current Medications Current Medications Medications (Trade) Dose Ordered Sig/Yaneth Route PRN Reason Start Time Stop Time Status Last Admin Dose Admin Acetaminophen (Tylenol Tab) 650 mg Q6HP PRN PO HEADACHE or DISCOMFORT 06/09/20 06:20 Al Hydrox/Mg Hydrox/Simethicone (Mylanta) 30 ml Q4HP PRN PO HEARTBURN/INDIGESTION 06/09/20 06:20 Clonidine HCl (Catapres) 0.1 mg TID PO 06/10/20 09:00 06/10/20 11:03 Home Med (Med Rec Complete!) ASDIRECTED XX 06/09/20 10:30 06/09/20 10:31 DC Magnesium Hydroxide (Milk Of Magnesia) 30 ml DAILYPRN PRN PO CONSTIPATION 06/09/20 06:20 Naloxone HCl (Narcan) 2 mg STAT STAT IV 06/08/20 22:17 06/08/20 22:19 DC 06/08/20 22:40 Trazodone HCl (Desyrel) 50 mg QHSP PRN PO INSOMNIA 06/09/20 06:20 Allergies Coded Allergies: lithium (Verified Allergy, Mild, itching, rash, 06/08/20) ANTONY VU MD Jun 10, 2020 15:40
[2020-06-10 18:19] VITALS: BP 140/96
[2020-06-11] MEDS: cloNIDine 0.1MG TABLET PO SCH ×2 (03:56→09:09)
[2020-06-11 06:33] VITALS: BP 131/60
[2020-06-11] MEDS: cloNIDine 0.1MG TABLET PO PRN ×2 (14:06→21:42)
--- NOTE | 2020-06-11 14:09 | MHIPNPDOC ---
[facility] Progress Note Progress Note DATE OF SERVICE: 06/11/20 HISTORY: . VITAL SIGNS: See below. NEW TEST RESULTS: . HISTORY: * Pt is medically cleared, cooperative/pleasant however fairly guarded, admits to sending text to friend(s) last night expressing SI. PT states she remembers sending text and then did not answer when friend called/texted her back prompting friend to call 911. Pt minimizing, states she "only took a piece of a Xanax", however this contradicts what was reported by Police, states she does not remember coming to the hospital, does admit to using IV heroin yesterday as well. Pt admits to hx of Bipolar d/o, depression and anxiety, hx of SI as well but denies any prior attempts at self harm, admits to non-compliance with outpt tx and medications, "haven't been there([facility] ) in a month". Pt denies HI/AH/VH, denies any other ETOH/drug use, states she is currently living alone as her BF is currently [facility]. Pt remains pleasant but guarded and appears to be minimizing incident last night. Patient experiencing less withdrawal symptoms today. Catapres added to her regimen. She denies suicidal ideation or intent. Anxious in the morning in bed in the afternoon. Catapres was increased. Discussed with team possible need for rehab. VITAL SIGNS: See below. NEW TEST RESULTS: None. CURRENT MEDICATIONS: See below. MENTAL STATUS EXAMINATION: Patient is a 24-year old female, who is involved in drug use, which caused her mood changes. Speech: Is. No gross disturbance. Language skills are intact. Thought processes including:. No gross disturbance. Thought content: Of gross disturbance. Abstract reasoning, and computation: Able to abstract. Description of associations:NO Loose associations. Description of abnormal or psychotic thoughts: No psychotic thought. Denies suicidal ideation. Judgment: Poor Insight: Limited. Orientation: 3. Recent and remote memory: Intact. Attention span and concentration: No gross disturbance. Language:. No gross disturbance. Fund of knowledge: Reasonable. Mood: Anxious. Affect:, Anxious. DIAGNOSES: 1., Opiate abuse. . ASSESSMENT: Patient withdrawing from heroin use. We'll reevaluate MANAGEMENT PLAN: As above. TIME SPENT: 25 minutes. Vital Signs Vital Signs Date Time Temp Pulse Resp B/P (MAP) Pulse Ox O2 Delivery O2 Flow Rate FiO2 06/11/20 09:09 131/60 06/11/20 06:33 98.6 78 18 99 Room Air Current Medications Current Medications Medications (Trade) Dose Ordered Sig/Yaneth Route PRN Reason Start Time Stop Time Status Last Admin Dose Admin Acetaminophen (Tylenol Tab) 650 mg Q6HP PRN PO HEADACHE or DISCOMFORT 06/09/20 06:20 Al Hydrox/Mg Hydrox/Simethicone (Mylanta) 30 ml Q4HP PRN PO HEARTBURN/INDIGESTION 06/09/20 06:20 Clonidine HCl (Catapres) 0.1 mg Q4HP PRN PO withdrawal 06/11/20 11:20 Clonidine HCl (Catapres) 0.1 mg TID PO 06/10/20 09:00 06/11/20 11:19 DC 06/11/20 09:09 Home Med (Med Rec Complete!) ASDIRECTED XX 06/09/20 10:30 06/09/20 10:31 DC Magnesium Hydroxide (Milk Of Magnesia) 30 ml DAILYPRN PRN PO CONSTIPATION 06/09/20 06:20 Naloxone HCl (Narcan) 2 mg STAT STAT IV 06/08/20 22:17 06/08/20 22:19 DC 06/08/20 22:40 Trazodone HCl (Desyrel) 50 mg QHSP PRN PO INSOMNIA 06/09/20 06:20 Allergies Coded Allergies: lithium (Verified Allergy, Mild, itching, rash, 06/08/20) ANTONY VU MD Jun 11, 2020 14:09
[2020-06-11 16:50] VITALS: BP 122/72
[2020-06-11] MEDS: traZODone 50 MG TAB PO PRN (21:40)
[2020-06-12 06:48] VITALS: BP 126/73
--- NOTE | 2020-06-12 06:49 | MHIPNPDOC ---
[facility] Progress Note Progress Note DATE OF SERVICE: 06/12/20 History: * Pt is medically cleared, cooperative/pleasant however fairly guarded, admits to sending text to friend(s) last night expressing SI. PT states she remembers sending text and then did not answer when friend called/texted her back prompting friend to call 911. Pt minimizing, states she "only took a piece of a Xanax", however this contradicts what was reported by Police, states she does not remember coming to the hospital, does admit to using IV heroin yesterday as well. Pt admits to hx of Bipolar d/o, depression and anxiety, hx of SI as well but denies any prior attempts at self harm, admits to non-compliance with outpt tx and medications, "haven't been there([facility]) in a month". Pt denies HI/AH/VH, denies any other ETOH/drug use, states she is currently living alone as her BF is currently in intermediate. Pt remains pleasant but guarded and appears to be minimizing incident last night. Patient experiencing less withdrawal symptoms today. Catapres added to her regimen. She denies suicidal ideation or intent. Anxious in the morning in bed in the afternoon. Catapres was increased. Discussed with team possible need for rehab. Will meet with team today and discuss disposition and any information from family. VITAL SIGNS: See below. NEW TEST RESULTS: None. CURRENT MEDICATIONS: See below. MENTAL STATUS EXAMINATION: Patient is a 24-year old female, who is involved in drug use, which caused her mood changes. Speech: Is. No gross disturbance. Language skills are intact. Thought processes including:. No gross disturbance. Thought content: Of gross disturbance. Abstract reasoning, and computation: Able to abstract. Description of associations:NO Loose associations. Description of abnormal or psychotic thoughts: No psychotic thought. Denies suicidal ideation. Judgment: Poor Insight: Limited. Orientation: 3. Recent and remote memory: Intact. Attention span and concentration: No gross disturbance. Language:. No gross disturbance. Fund of knowledge: Reasonable. Mood: Anxious. Affect:, Anxious. DIAGNOSES: 1., Opiate abuse. . ASSESSMENT: Patient withdrawing from heroin use. We'll reevaluate Vital Signs Vital Signs Date Time Temp Pulse Resp B/P (MAP) Pulse Ox O2 Delivery O2 Flow Rate FiO2 06/11/20 21:42 173/94 06/11/20 06:33 98.6 78 18 99 Room Air Current Medications Current Medications Medications (Trade) Dose Ordered Sig/Yaneth Route PRN Reason Start Time Stop Time Status Last Admin Dose Admin Acetaminophen (Tylenol Tab) 650 mg Q6HP PRN PO HEADACHE or DISCOMFORT 06/09/20 06:20 Al Hydrox/Mg Hydrox/Simethicone (Mylanta) 30 ml Q4HP PRN PO HEARTBURN/INDIGESTION 06/09/20 06:20 Clonidine HCl (Catapres) 0.1 mg Q4HP PRN PO withdrawal 06/11/20 11:20 06/11/20 21:42 Clonidine HCl (Catapres) 0.1 mg TID PO 06/10/20 09:00 06/11/20 11:19 DC 06/11/20 09:09 Home Med (Med Rec Complete!) ASDIRECTED XX 06/09/20 10:30 06/09/20 10:31 DC Magnesium Hydroxide (Milk Of Magnesia) 30 ml DAILYPRN PRN PO CONSTIPATION 06/09/20 06:20 Naloxone HCl (Narcan) 2 mg STAT STAT IV 06/08/20 22:17 06/08/20 22:19 DC 06/08/20 22:40 Trazodone HCl (Desyrel) 50 mg QHSP PRN PO INSOMNIA 06/09/20 06:20 06/11/20 21:40 Allergies Coded Allergies: lithium (Verified Allergy, Mild, itching, rash, 06/08/20) ANTONY VU MD Jun 12, 2020 06:49
[2020-06-12] MEDS: cloNIDine 0.1MG TABLET PO PRN ×2 (10:18→19:57)
[2020-06-12 16:09] LABS: HEPATITIS C QUANTITATION HCV Not Detected IU/mL (.)
[2020-06-12 16:50] VITALS: BP 148/94
[2020-06-12] MEDS: traZODone 50 MG TAB PO PRN (19:55)
[2020-06-13 06:49] VITALS: BP 157/94
--- NOTE | 2020-06-13 07:53 | MHIPNPDOC ---
[facility] Progress Note Progress Note DATE OF SERVICE: 06/13/20 HISTORY: Patient experiencing no withdrawal symptoms today. Catapres was added to her regimen. She denies suicidal ideation or intent. Anxious in the morning in bed in the afternoon. Discussed with team possible need for rehab. Will meet with team today and discuss disposition and any information from family. It is my belief she does not want to go for drug rehabilitation. VITAL SIGNS: See below. NEW TEST RESULTS: None. CURRENT MEDICATIONS: See below. MENTAL STATUS EXAMINATION: Patient is a 24-year old female, who is involved in drug use, which caused her mood changes. Speech: Is. No gross disturbance. Language skills are intact. Thought processes including:. No gross disturbance. Thought content: Of gross disturbance. Abstract reasoning, and computation: Able to abstract. Description of associations:NO Loose associations. Description of abnormal or psychotic thoughts: No psychotic thought. Denies suicidal ideation. Judgment: Poor Insight: Limited. Orientation: 3. Recent and remote memory: Intact. Attention span and concentration: No gross disturbance. Language:. No gross disturbance. Fund of knowledge: Reasonable. Mood: Anxious. Affect:, Anxious. DIAGNOSES: 1., Opiate abuse. . ASSESSMENT: Patient withdrawing from heroin use. We'll reevaluate Tme spent 25 minutes. Vital Signs Vital Signs Date Time Temp Pulse Resp B/P (MAP) Pulse Ox O2 Delivery O2 Flow Rate FiO2 06/13/20 06:49 100.3 63 16 157/94 (115) 98 Room Air Current Medications Current Medications Medications (Trade) Dose Ordered Sig/Yaneth Route PRN Reason Start Time Stop Time Status Last Admin Dose Admin Acetaminophen (Tylenol Tab) 650 mg Q6HP PRN PO HEADACHE or DISCOMFORT 06/09/20 06:20 Al Hydrox/Mg Hydrox/Simethicone (Mylanta) 30 ml Q4HP PRN PO HEARTBURN/INDIGESTION 06/09/20 06:20 Clonidine HCl (Catapres) 0.1 mg Q4HP PRN PO withdrawal 06/11/20 11:20 06/12/20 19:57 Clonidine HCl (Catapres) 0.1 mg TID PO 06/10/20 09:00 06/11/20 11:19 DC 06/11/20 09:09 Home Med (Med Rec Complete!) ASDIRECTED XX 06/09/20 10:30 06/09/20 10:31 DC Magnesium Hydroxide (Milk Of Magnesia) 30 ml DAILYPRN PRN PO CONSTIPATION 06/09/20 06:20 Naloxone HCl (Narcan) 2 mg STAT STAT IV 06/08/20 22:17 06/08/20 22:19 DC 06/08/20 22:40 Trazodone HCl (Desyrel) 50 mg QHSP PRN PO INSOMNIA 06/09/20 06:20 06/12/20 19:55 Allergies Coded Allergies: lithium (Verified Allergy, Mild, itching, rash, 06/08/20) ANTONY VU MD Jun 13, 2020 07:52
[2020-06-13] MEDS ORDERED: INFLUENZA QUADRIVALENT PF VACCINE 0.5ML SYRINGE IM ONE (12:00)
[2020-06-13 18:20] VITALS: BP 150/98
[2020-06-13] MEDS: cloNIDine 0.1MG TABLET PO PRN ×2 (18:44→23:33)
[2020-06-13] MEDS: traZODone 50 MG TAB PO PRN (23:33)
[2020-06-14 06:20] VITALS: BP 120/69
[2020-06-14 08:23] VITALS: BP 120/69
[2020-06-14] MEDS: cloNIDine 0.1MG TABLET PO PRN (08:23)
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
== END 2020-06-14 10:10 | disposition home or self-care (01) | DRG 773 ==
LOC: M ED 22:14 → M ED INP 06-09 06:57 → M PSY 06-09 10:00
PROVIDERS: ADMIT Psychiatry & Neurology Child & Adolescent Psychiatry; ATTEND Psychiatry & Neurology Child & Adolescent Psychiatry
DX: F11.14 Opioid abuse with opioid-induced mood disorder (principal); R45.851 Suicidal ideations; F31.9 Bipolar disorder, unspecified; Z88.8 Allergy status to other drugs, medicaments and biological substances; B18.2 Chronic viral hepatitis C; F41.9 Anxiety disorder, unspecified

== ENCOUNTER 2020-11-11 02:10 | Inpatient (IN) | payer MEDICAID, OTHER ==
[~2020-11-11] VITALS: Ht 172.7 cm; Wt 67.0 kg
[~2020-11-11 02:10] MED LIST changes: +METH-1177 PO; +METH-1178 PO; -METH10TA2 PO; -METH10TA3 PO
[2020-11-11] MEDS ORDERED: METH10CO PO (02:34)
[2020-11-11] MEDS ORDERED: NS 1,000 ML IV ONE (03:55)
[2020-11-11] MEDS: MORPHINE 4 MG/ML 1ML VIAL/SYRINGE (J2270) IV PRN ×2 (04:30→05:41)
[2020-11-11 04:32] LABS: BASO % 0.2 % (0.0-1.0); EOS % 0.3 % (0.0-3.0); HEMATOCRIT 41.1 % (36.0-47.0); HEMOGLOBIN 13.9 g/dl (12.0-15.5); LYMPH # 2.7 10^3/uL (1.5-5.0); LYMPH % 17.3 % (24.0-44.0); MEAN CORPUSCULAR HEMOGLOBIN 28.5 pg (27.0-33.0); MEAN CORPUSCULAR HGB CONC 33.8 g/dl (32.0-36.5); MEAN CORPUSCULAR VOLUME 84.2 fl (80.0-96.0); MONO # 0.8 10^3/uL (0.0-0.8); MONO % 5.3 % (2.0-8.0); NEUTROPHILS # 11.8 10^3/uL (1.5-8.5); NEUTROPHILS % 76.4 % (36.0-66.0); PLATELET COUNT, AUTOMATED 272 10^3/uL (150-450); RED BLOOD COUNT 4.88 10^6/uL (4.00-5.40); WHITE BLOOD COUNT 15.5 10^3/uL (4.0-10.0)
[2020-11-11] MEDS ORDERED: HOME MED LIST COMPLETE! XX SCH (04:35)
[2020-11-11] MEDS ORDERED: CEFTAROLINE FOSAMIL 600 MG in D5W MINI-BAG PLUS 50 ML IV ONE (05:00)
[2020-11-11 05:03] LABS: ALBUMIN 2.8 GM/DL (3.2-5.2); ALT/SGPT 15 U/L (12-78); BILIRUBIN,DIRECT < 0.1 MG/DL (0.0-0.2); BILIRUBIN,TOTAL 0.3 MG/DL (0.2-1.0); BLOOD UREA NITROGEN 6 MG/DL (7-18); CALCIUM LEVEL 8.5 MG/DL (8.5-10.1); CARBON DIOXIDE LEVEL 26 MEQ/L (21-32); CHLORIDE LEVEL 108 MEQ/L (98-107); CREATININE FOR GFR 0.56 MG/DL (0.55-1.30); GLOMERULAR FILTRATION RATE > 60.0 (>60); GLUCOSE, FASTING 98 MG/DL (70-100); POTASSIUM SERUM 4.9 MEQ/L (3.5-5.1); SODIUM LEVEL 140 MEQ/L (136-145)
[2020-11-11 05:32] LABS: RSV AMPLIFICATION NEGATIVE (NEGATIVE)
--- NOTE | 2020-11-11 05:48 | REPVR ---
PROCEDURE INFORMATION: Exam: US Right Non-Vascular Joint or Other Extremity Structure Exam date and time: 11/11/2020 5:10 AM Age: 25 years old Clinical indication: Mass or lump; Arm, lower and hand; Right; Bilateral; Additional info: Abscesses TECHNIQUE: Imaging protocol: Right US joint or other nonvascular extremity structure or structures. Real-time ultrasound with image documentation. Limited study. Exam focused on the upper extremity in the region of clinical interest. COMPARISON: No relevant prior studies available. FINDINGS: Soft tissues: An evolving phlegmon deep to skin ulceration in right forearm measures approximately 2 x x 1 x 3.5 cm. Additional evolving phlegmon in the right hand measuring 1.6 x 1 x 1.2 cm. Adjacent subcutaneous edema. IMPRESSION: Several organizing abscesses in the forearm and hand as discussed above. PROCEDURE INFORMATION: Exam: US Left Non-Vascular Joint or Other Extremity Structure Exam date and time: 11/11/2020 5:10 AM Age: 25 years old Clinical indication: Mass or lump; Arm, lower and hand; Right; Bilateral; Additional info: Abscesses TECHNIQUE: Imaging protocol: Left US joint or other nonvascular extremity structure or structures. Real-time ultrasound with image documentation. Limited study. Exam focused on the upper extremity in the region of clinical interest. COMPARISON: No relevant prior studies available. FINDINGS: Soft tissues: Evolving phlegmon in the mid forearm measures 3 x 1.7 x 2.2 cm. Additional organizing abscess the left forearm measures 2.6 x 1.7 x 2.3 cm IMPRESSION: Organizing abscesses in the forearm. Electronically signed by: Sebas Woods On 11/11/2020 05:48:26 AM
[2020-11-11 06:39] LABS: C REACTIVE PROTEIN QUANTITATIV 8.68 MG/DL (0.00-0.30)
[2020-11-11 06:59] LABS: ERYTHROCYTE SEDIMENTATION RATE 60 mm/hr (0-20)
[2020-11-11] MEDS ORDERED: ISOVUE-370 76% 100ML VIAL As Ordered ONE (07:33)
--- NOTE | 2020-11-11 08:13 | REPVR ---
PROCEDURE INFORMATION: Exam: CT Right Upper Extremity With Contrast, Hand Exam date and time: 11/11/2020 7:17 AM Age: 25 years old Clinical indication: Swelling; Hand; Right; Additional info: CT hand with contrast, abscess TECHNIQUE: Imaging protocol: CT of the Right upper extremity with intravenous contrast was performed. Exam focused on the hand. Radiation optimization: All CT scans at this facility use at least one of these dose optimization techniques: automated exposure control; mA and/or kV adjustment per patient size (includes targeted exams where dose is matched to clinical indication); or iterative reconstruction. Contrast material: ISOVUE 370; Contrast volume: 100 ml; Contrast route: INTRAVENOUS (IV); COMPARISON: US EXTREMITY NON VASCUL LIMITED BILATERAL 11/11/2020 4:52 AM FINDINGS: Bones/joints: No evidence of acute osteomyelitis. Soft tissues: Severe cellulitis with multiloculated peripherally enhancing collection along the dorsal medial hand. No soft tissue gas. Additional peripherally enhancing fluid pocket along the radial distal arm. Vasculature: Suggestion of thrombophlebitis along dorsum the hand. IMPRESSION: Severe cellulitis with multiloculated peripherally enhancing collection along the dorsal medial hand. No soft tissue gas. Additional peripherally enhancing fluid pocket along the radial distal arm. No soft tissue gas. Electronically signed by: Sbeas Woods On 11/11/2020 08:13:39 AM
[2020-11-11] MEDS ORDERED: D5W/0.45% SODIUM CHLORIDE 1,000 ML IV SCH (08:40)
[2020-11-11] MEDS ORDERED: HYDROMORPHONE HCL 0.5 MG/ 0.5 ML SYRINGE (J1170 PER 1) IV ONE (08:40)
[2020-11-11] MEDS ORDERED: KETOROLAC 30 MG/ML 1ML VIAL IV ONE (08:40)
--- NOTE | 2020-11-11 08:53 | HPEPDOC ---
[facility] Medical History & Physical Date of Admission Nov 11, 2020 Date of Service: Nov 11, 2020 History and Physical CHIEF COMPLAINT: Multiple abscesses bilateral forearms for 4 days HISTORY OF PRESENT ILLNESS: 25-year-old female with history IV drug use with heroin active tobacco use less than 1/2 pack/day for 2 years presents emergency room with 4 to 5-day history of abscesses forming in bilateral forearms with purulence and ulcer formation patient denies any fever chills initially noted on the left medial forearm to be about dime size red painful and swollen then progressed onto the upper arm hand and involving the right forearm as well. Patient is an IV drug user with heroin and has been taking Tylenol and ibuprofen without improvement she presented to the emergency room was found to have cellulitis and bilateral multiple abscesses involving both forearms and the right dorsum of the hand. Orthopedic surgeon Dr. Lucero has been consulted and agrees with irrigation debridement in the operating room. Patient has been kept n.p.o. and started on IV fluids. However, during the IV contrast study patient lost her IV access. PICC line ordered .RN unable to place any other line. anesthesia has been consulted to place a line in. PAST MEDICAL HISTORY: Bipolar disorder anxiety depression heroin abuse cigarette abuse suicide attempt PAST SURGICAL HISTORY: None SOCIAL HISTORY: Previously worked out most [facility] ([place], [place]) in [place], active tobacco use less than a half a pack a day for the past 2 years on and off heroin abuse goes to [facility] on methadone denies alcohol abuse FAMILY HISTORY: Mother father in their 40s unknown medical problems ALLERGIES: Please see below. REVIEW OF SYSTEMS: CONSTITUTIONAL: No fever chills weight gain weight loss HEENT: No changes in vision blurred vision diplopia nasal discharge sore throat tinnitus vertigo CARDIOVASCULAR: Denies chest pain pressure tightness shortness of breath palpitations lightheadedness dizziness RESPIRATORY: Denies shortness of breath chest pain pressure tightness GASTROINTESTINAL: Denies nausea vomiting abdominal pain GENITOURINARY: Denies dysuria urgency frequency flank pain no chills fever SKIN: Multiple abscesses bilateral forearms and right hand MUSCULOSKELETAL: No joint pains NEUROLOGICAL: No paresthesias or weakness PSYCHIATRIC: History of bipolar disorder suicidal attempt anxiety depression ENDOCRINE: Denies polyphagia polyuria polyuria no history of diabetes or hypothyroidism HEMATOLOGIC/LYMPHATIC: Denies any anemia lymphadenopathy HOME MEDICATIONS: Please see below. PHYSICAL EXAMINATION: VITAL SIGNS: See below GENERAL APPEARANCE: Tearful, crying at the bedside no respiratory distress appears older than her stated age with eye bags multiple skin excoriations HEENT: Extraocular muscles intact no thyromegaly moist mucous membranes no cervical lymphadenopathy CARDIOVASCULAR: S1-S2 sinus rhythm not tachycardic regular rate rhythm no murmurs LUNGS: Clear to auscultation no wheezing or rales no adventitious breath sounds air entry is equal ABDOMEN: Positive bowel sounds soft nontender nondistended no rebound or guarding EXTREMITIES: No cyanosis clubbing or pitting edema track diaz noted bilateral upper extremities SKIN: RIGHT UPPER EXTREMITY AND THE RIGHT DORSAL LATERAL ASPECT IS A 3 AND HALF CENTIMETER MOBILE TENDER ABSCESS MEASURING 3-1/2 CM AROUND THE RIGHT WRIST 7 CM Left upper extremity dorsum of the lateral hand had a 6 cm abscess left arm has a 3 cm also in a 5 cm abscess which is erythema tenderness warmth LABORATORY DATA: See below. IMAGING: See below MICROBIOLOGY: Please see below. ASSESSMENT: 25-year-old female with history of IV drug use with heroin bipolar disorder anxiety depression prior suicide attempt active heroin abuse and active tobacco cigarette abuse of a half a pack a day admitted with multiple bilateral upper extremity abscesses involving the right hand as well. Sepsis secondary to bilateral upper extremity abscesses secondary to IV drug use and thrombophlebitis Bilateral upper extremity abscesses IV drug abuse with heroin Active tobacco abuse History of bipolar disorder anxiety depression and prior suicide attempt Thrombophlebitis Lost IV access PLAN: Patient will be admitted as an inpatient for 2 midnights to medical surgical floor she has been given IV ceftaroline in the emergency room. She will be kept n.p.o. for operating room debridement and washout of multiple abscesses. wound cultures in the OR to be sent for sensitivity. PICC line ordered. Blood cultures obtained. IV vancomycin 1 g every 8 hourly until cultures have returned. IV Toradol as needed for pain IV fluids while n.p.o. to prevent hypoglycemia Check TSH and A1c. Orthopedic surgeon Dr. Lucero has been consulted. Elevate bilateral upper extremities on 3 pillows. DVT prophylaxis with compression stockings Patient is a full code. Vital Signs Vital Signs Date Time Temp Pulse Resp B/P (MAP) Pulse Ox O2 Delivery O2 Flow Rate FiO2 11/11/20 08:00 130/80 (97) 11/11/20 06:13 18 11/11/20 02:11 98.2 112 98 Room Air Laboratory Data Labs 24H Laboratory Tests 2 11/11/20 03:58: Immature Granulocyte % (Auto) 0.5, Neutrophils (%) (Auto) 76.4H, Lymphocytes (%) (Auto) 17.3L, Monocytes (%) (Auto) 5.3, Eosinophils (%) (Auto) 0.3, Basophils (%) (Auto) 0.2, Neutrophils # (Auto) 11.8H, Lymphocytes # (Auto) 2.7, Monocytes # (Auto) 0.8, Eosinophils # (Auto) 0.0, Basophils # (Auto) 0.0, Nucleated Red Blood Cells % (auto) 0.0, Erythrocyte Sedimentation Rate 60H, Anion Gap 6L, Glomerular Filtration Rate > 60.0, Lactic Acid Level 1.2, Calcium Level 8.5, Total Bilirubin 0.3, Direct Bilirubin < 0.1, Aspartate Amino Transf (AST/SGOT) 31, Alanine Aminotransferase (ALT/SGPT) 15, Alkaline Phosphatase 79, C-Reactive Protein, Quantitative 8.68H, Total Protein 8.0, Albumin 2.8L, Albumin/Globulin Ratio 0.5L, Coronavirus (COVID-19)(PCR) NEGATIVE, Influenza Type A (RT-PCR) NEGATIVE, Influenza Type B (RT-PCR) NEGATIVE, Respiratory Syncytial Virus (PCR) NEGATIVE CBC/BMP Laboratory Tests 11/11/20 03:58 Microbiology Microbiology 11/11/20 Blood Culture, Received Pending 11/11/20 Blood Culture, Received Pending Home Medications Scheduled Methadone HCl (Methadone HCl) 10 Mg/1 Ml Oral.conc, 40 MG PO DAILY Allergies Coded Allergies: lithium (Verified Allergy, Mild, itching, rash, 06/08/20) A-FIB/CHADSVASC A-FIB History Current/History of A-Fib/PAF?: No Current PO Anticoag Therapy: No Age/Risk Factor Scoring CHADSVASC: CHADSVASC Response (Comments) Value Age Risk Factor Age < 65 years old 0 Gender Risk Factor Female 1 Hx of CHF No 0 Hx of HTN No 0 Hx of Stroke/TIA/or VTE No 0 Hx of Diabetes No 0 Hx of Vascular Disease No 0 Total 1 Treatment Treatment ordered: NONE YURIY CARRILLO MD Nov 11, 2020 08:53
[2020-11-11] MEDS ORDERED: KETOROLAC 30 MG/ML 1ML VIAL IV PRN (08:55)
--- NOTE | 2020-11-11 09:32 | HPE ---
HISTORY AND PHYSICAL DATE OF ADMISSION: 11/11/2020 CHIEF COMPLAINT: Bilateral upper extremity abscesses. HISTORY OF PRESENT ILLNESS: This 25-year-old female presented to the Emergency Department. I was called to consult by Dr. Gordon, the Hospitalist. The patient complained of a four day history of increasing pain and abscess sites to the bilateral upper extremities. She states that the right abscess at the wrist on the radial side has been draining out for a day pus as well as blood. She has never had this before. She is not complaining about fevers, chills or feeling unwell. She has been injecting intravenous heroin at multiple sites in her forearms and hands. PAST MEDICAL HISTORY: Bipolar, depression, anxiety, intravenous drug use, hepatitis C. MEDICATIONS: 1. Methadone. ALLERGIES: New Site. PAST SURGICAL HISTORY: None. SOCIAL HISTORY: Unemployed. Smokes less than a half pack a cigarettes a day. Does not drink alcohol. Uses intravenous heroin. PHYSICAL EXAMINATION: GENERAL: This is a 25-year-old female who appeared overall unwell but not toxic appearing. She appears anxious. VITAL SIGNS: Blood pressure is 130/80, respiratory rate 18, pulse rate is 112 last recorded at 2 a.m. Temperature 98.2. Pulse oximetry 98% on room air. EXTREMITY: The right upper extremity on the dorsum of the hand overlying the fifth metacarpal there is a small approximately 1 cm size red raised area and appears to be consistent with an abscess. There is also another about inch area at the radial side of the wrist overlying the radial styloid that is draining some serosanguinous slightly white tinged fluid. Both of these lesions are firm, red and warm. There is no pain with range of motion of the hand. No obvious swelling in the hand. The forearm compartments are soft. No pain on passive stretch of digits. No obvious dactylitis or pain to palpation along the flexor tendons of the hand. On the left side, there are two abscess areas, one in the mid aspect of the forearm over the subcutaneous border of the ulnar and one more towards to the volar side at approximately the same level it is slightly open and draining as well. These lesions are about the same size, they are red and warm. The forearm compartments are soft on this side. No pain to palpation of the digits. No dactylitis. No pain on passive stretch. No obvious involvement of the flexor tendons. On both sides, there is no pain with range of motion of the hand, wrist or elbows. The patient states no other red, warm or swollen lesions or areas. Hands are both warm and well-perfused, strong radial pulse. Normal sensation and motor function to the immediate radial and ulnar nerves as well as AIN/PIN both sides. INVESTIGATIONS: white blood cell count is 15.5, neutrophil percent is 76. ESR is 60. CRP 8.6. COVID negative. Blood cultures are pending. Extremity ultrasound on the right several organizing abscesses on the forearm and hand as discussed. The forearm measures 2 x 1 x 3.5 cm, then in the hand 1.6 x 1 x 1.2 cm on the left side. Phlegmon in the mid forearm measures 3 x 1.7 x 2.2 cm, additional organizing abscess. Left forearm measuring 2.6 x 1.[address] Upper extremity [address] of the right hand with contrast: Radiology impression: Severe cellulitis with multiloculated peripherally enhancing collection along the dorsal medial hand. No soft tissue gas. Additionally peripherally enhancing fluid pocket along the radial and distal arm. No soft tissue gas. ASSESSMENT AND PLAN: This is a 25-year-old female who has multiple abscesses of the hand and forearm of bilateral upper extremities. I recommend emergent irrigation and debridement of these abscesses in the operating theater. I recommend the patient be placed NPO, admitted to the Hospitalist service with appropriate intravenous antibiotic coverage for MRSA bacteria as well as Infectious Disease consult. I have discussed with the patient the pros and cons, risks and benefits of nonsurgical versus surgical intervention for this problem. Potential surgical risks include but are not limited to infection, pain, stiffness, bleeding, damage to surrounding structures, neurovascular injury, anesthetic complications, blood clots, , other risks as well as need for further surgery. These are likely to be left open to drain and heal by secondary intention. In addition, we discussed the risks of nonsurgical treatment which would be spreading the infection and other risks. She consented for the surgical procedure of bilateral upper extremities, irrigation and debridement as well as possible need for blood products and we discussed the pros, cons, risks and benefits of that as well which include but are not limited to fever, allergic reaction, infection with bacteria or viruses. I see no signs of septic joint, pyogenic flexor tendinitis or compartment syndrome. I have communicated directly to the OR. The next available OR time is apparently today in the early afternoon. I communicated the urgency of the case to Maricruz, the charge nurse. I also communicated with Dr. Gordon, the Hospitalist, who will admit the patient for her medical problems and included my recommendations. For now, the patient will be remaining NPO until I am able to complete the case. MIKE
[2020-11-11 10:10] VITALS: BP 130/76
[2020-11-11] MEDS ORDERED: ACETAMINOPHEN TAB 650MG DOSE (2X325MG) PO PRN ×2 (10:40→16:55)
[2020-11-11] MEDS ORDERED: LIDOCAINE 1% MDV 20ML VIAL As Ordered ONE (15:56)
[2020-11-11] MEDS ORDERED: VANCOMYCIN HCL 750 MG, VIAL MATE ADAPTER 1 EACH in NS 250 ML IV ONE ×2 (17:00→18:00)
[2020-11-11] MEDS: KETOROLAC 30 MG/ML 1ML VIAL IV SCH ×2 (17:06→22:40)
[2020-11-11] MEDS: NS 1,000 ML IV SCH (17:24)
[2020-11-11] MEDS ORDERED: MIDAZOLAM INJ 2MG/2ML VIAL (J2250 PER 1MG) As Ordered ONE (18:15)
[2020-11-11] MEDS ORDERED: fentaNYL 100 MCG/2 ML INJECTION (J3010) As Ordered ONE (18:21)
[2020-11-11] MEDS ORDERED: LIDOCAINE 2% 100MG/5ML SDV (FOR ANES.) As Ordered ONE (18:22)
[2020-11-11] MEDS ORDERED: propofoL 200 MG/20 ML VIAL As Ordered ONE (18:22)
[2020-11-11] MEDS ORDERED: ROCURONIUM BROMIDE 50 MG/5 ML VIAL As Ordered ONE (18:27)
[2020-11-11] MEDS ORDERED: HYDROmorphone HCL 2 MG/ML 1ML VIAL (J1170) As Ordered ONE (19:06)
[2020-11-11] MEDS ORDERED: VANCOMYCIN 1000MG/20ML VIAL As Ordered ONE (19:09)
[2020-11-11] MEDS ORDERED: ONDANSETRON 4MG/2ML VIAL As Ordered ONE (19:29)
[2020-11-11] MEDS ORDERED: dexameTHASONE 4 MG/ML 1ML VIAL (J1100 PER 1MG) As Ordered ONE (19:29)
--- NOTE | 2020-11-11 19:50 | ROOPDOC ---
[facility] Report Of Operation Report of Operation DATE OF PROCEDURE: 11/11/20 PREPROCEDURE DIAGNOSES: Bilateral upper extremity abscesses. POSTPROCEDURE DIAGNOSES: Same. PROCEDURE PERFORMED: Bilateral upper extremity irrigation and debridement. SURGEON: Dr. Jerardo Lugo MD PRESSING MACHINE OPERATOR: ANESTHESIA: General anesthesia Dr. Blake. ESTIMATED BLOOD LOSS: Approximately 10 mL. COMPLICATIONS: None. REMARKS: FINDINGS: Bilateral upper extremity abscesses and pus SPECIMENS REMOVED: Samples sent for anaerobes and aerobes Gram stain and sensitivities PROCEDURE NOTE: This 25-year-old female presented with multiple abscesses on her upper extremities. We discussed the pros and cons risks and benefits of nonoperative versus surgical intervention irrigation and debridement. She wished to proceed with surgery. I saw the patient in preoperative holding they had no further questions.. DESCRIPTION OF PROCEDURE: The patient was brought to the operating room theater placed supine in the operating room table. Vancomycin was ordered in the emergency department. All bony prominences appropriately padded. SCDs on the legs. General anesthesia was induced. Bilateral upper extremities prepped and draped with iodine-based prep solution allowing over 3 minutes drying time prior to draping. Preoperative timeout performed to confirm the site the patient and the surgery. I began by addressing the left upper extremity. On the volar forearm there is an area of soft tissue loss approximately 2.5 cm in a circular area. Proximal to this there appeared to be a small abscess collection. I made a small 0.5 cm incision into this and immediately drained pus which I swabbed for aerobes and anaerobes. The areas communicated deep, and I ensured no remaining purulent fluid. There is another collection on the subcutaneous border the ulna at nearly the same level. Again I made a small incision in this approximately 1 cm long and drained pus. I thoroughly irrigated with copious normal saline with vancomycin solution followed by iodine packing both sites, clean the skin with wet and dry dressing followed by application of 4 by 8 gauze and loose Peter type wrap. Turned next my attention to the right upper extremity. On the radial styloid area there is again a fluid pus collection which I drained using a small 1 cm longitudinal incision. I thoroughly irrigated this with normal saline mixed with vancomycin solution. I performed a similar technique for the abscess over the metacarpal heads just proximal between the fourth and the fifth metacarpal. This is on the dorsum of the hand. I did not pack of this small abscess however I did place packing into the radial styloid abscess. Again skin was cleaned with wet and dry dressing followed by 4 by 8 gauze and loosely wrapped Peter type dressing. Case was terminated patient woken up from general anesthetic transferred off the operating room table and taken to postanesthetic care unit in stable condition. All sponge needle instrument counts correct. No complications. Estimated blood loss 10 cc. Plan for the patient is to be readmitted under the hospitalist service. I mau nunez infectious disease consult coverage for likely MRSA, daily inflammatory markers to ensure response to antibiotics changing the packing every 1 to 2 days daily dressing changes warm soaks for the right hand as well as plastic surgery consult for consideration of soft tissue management left volar forearm 2.5 cm circular lesion. JERARDO LUGO MD Nov 11, 2020 19:50
[2020-11-11] MEDS ORDERED: LR 1,000 ML IV SCH (20:10)
[2020-11-11] MEDS ORDERED: ONDANSETRON 4MG/2ML VIAL IV PRN (20:10)
[2020-11-11] MEDS ORDERED: PERCOCET 5MG/325MG TAB PO PRN (20:10)
[2020-11-11] MEDS ORDERED: fentaNYL 100 MCG/2 ML INJECTION (J3010) IV PRN (20:10)
[2020-11-11] MEDS ORDERED: METOCLOPRAMIDE INJ 10MG/2ML VIAL (J2765 PER 1) IV PRN (20:10)
[2020-11-11 20:42] VITALS: BP 153/97
[2020-11-11 21:15] VITALS: BP 130/80
--- NOTE | 2020-11-11 21:36 | ECGEPIP ---
[facility] - ED Test Date: 2020-11-11 Pat Name: SIMA LINARES Department: Room: 0102 Gender: Female Nutrition Manager: EMBER ALARCON : 1995 Requested By: FREIDA Sinha Order Number: [id number] Reading MD: Horace Howard Measurements Intervals Trail Rate: 74 P: 46 VT: 136 QRS: 16 QRSD: 80 T: 15 QT: 392 QTc: 435 Interpretive Statements Normal sinus rhythm POOR R WAVE PROGRESSION NONSPECIFIC T WAVE ABNORMALITY(S) SIMILAR TO 06/08/20 Electronically Signed on 11-11-2020 21:36:04 EDT by Horace Howard
[2020-11-11 21:45] VITALS: BP 121/62
[2020-11-11] MEDS: VANCOMYCIN HCL 1,000 MG, VIAL MATE ADAPTER 1 EACH in NS 250 ML IV SCH (22:40)
[2020-11-11 22:45] VITALS: BP 140/72
[2020-11-11 23:44] VITALS: BP 144/77
[2020-11-12] VITALS (7 sets, daily range): BP systolic 101–167; BP diastolic 49–85
[2020-11-12] MEDS: PERCOCET 5MG/325MG TAB PO PRN ×4 (01:28→19:55)
[2020-11-12] MEDS: KETOROLAC 30 MG/ML 1ML VIAL IV SCH ×4 (05:42→22:47)
[2020-11-12] MEDS: SODIUM CHLORIDE 0.9% INJ 10 ML SYR IV SCH ×2 (05:44→18:18)
[2020-11-12] MEDS: VANCOMYCIN HCL 1,000 MG, VIAL MATE ADAPTER 1 EACH in NS 250 ML IV SCH ×3 (06:05→22:47)
[2020-11-12] MEDS: METHADONE 10 MG TAB (S0109) PO SCH (08:41)
[2020-11-12 08:51] LABS: BASO % 0.2 % (0.0-1.0); HEMATOCRIT 38.9 % (36.0-47.0); LYMPH # 2.4 10^3/uL (1.5-5.0); LYMPH % 19.6 % (24.0-44.0); MEAN CORPUSCULAR HEMOGLOBIN 28.8 pg (27.0-33.0); MEAN CORPUSCULAR HGB CONC 33.4 g/dl (32.0-36.5); MEAN CORPUSCULAR VOLUME 86.3 fl (80.0-96.0); MONO # 0.6 10^3/uL (0.0-0.8); NEUTROPHILS % 74.7 % (36.0-66.0); PLATELET COUNT, AUTOMATED 286 10^3/uL (150-450); RED BLOOD COUNT 4.51 10^6/uL (4.00-5.40); WHITE BLOOD COUNT 12.1 10^3/uL (4.0-10.0)
[2020-11-12 09:20] LABS: BLOOD UREA NITROGEN 9 MG/DL (7-18); C REACTIVE PROTEIN QUANTITATIV 5.97 MG/DL (0.00-0.30); CALCIUM LEVEL 8.4 MG/DL (8.5-10.1); CARBON DIOXIDE LEVEL 25 MEQ/L (21-32); CHLORIDE LEVEL 112 MEQ/L (98-107); CREATININE FOR GFR 0.53 MG/DL (0.55-1.30); GLOMERULAR FILTRATION RATE > 60.0 (>60); GLUCOSE, FASTING 100 MG/DL (70-100); POTASSIUM SERUM 4.2 MEQ/L (3.5-5.1); SODIUM LEVEL 141 MEQ/L (136-145); THYROID STIMULATING HORMONE 0.172 uIU/ML (0.358-3.740)
[2020-11-12 09:32] LABS: ERYTHROCYTE SEDIMENTATION RATE 58 mm/hr (0-20)
[2020-11-12 10:22] LABS: HEMOGLOBIN A1c 5.2 %
[2020-11-12] MEDS: NS 1,000 ML IV SCH (10:24)
[2020-11-12] MEDS: SODIUM CHLORIDE 0.9% INJ 10 ML SYR IV PRN (14:16)
[2020-11-12] MEDS ORDERED: VANCOMYCIN HCL 500 MG in D5W MINI-BAG PLUS 100 ML IV ONE (17:00)
--- NOTE | 2020-11-12 18:16 | CR.PDOC ---
Plastic Surgery Consultation Date of Consultation 11/12/20 History and Physical CONSULT REPORT FOR: Medical team REASON FOR CONSULTATION: Left forearm open wound s/p abscess drainage 11/11/20 HISTORY OF PRESENT ILLNESS: 25 y/o female with h/o IVDA presented to ER with several forearm abscesses. Larger one on the left with skin deficit of 2.5 cm. Patient denies pain currently. She is able to make a full fist. Denies paraesthesia in either hand. Two other smaller wounds are with iodoform packing in place. PAST MEDICAL HISTORY: 1. IVDA, Bipolar, depression, anxiety, intravenous drug use, hepatitis C. PAST SURGICAL HISTORY: INCLUDES: 1. dental surgery. PREVIOUS ANESTHESIA REACTIONS: denies ALLERGIES: Please see below. FAMILY HISTORY: non contributory. HOME MEDICATIONS: Please see below. REVIEW OF SYSTEMS: GENERAL: Denies chills, reports weight gain,. HEENT: Denies blurred vision and double vision. Denies ear symptoms. Denies hoarseness. NECK: Denies any neck pain]. CARDIOVASCULAR: Denies chest pain and palpitations. MUSCULOSKELETAL: Denies arthralgias, back pain and thrombophlebitis. SKIN: Denies rash. abscesses both arms NEUROLOGIC: Denies headache, stroke and transient ischemic attack. PSYCHIATRIC: Denies anxiety and depression. ENDOCRINE: Denies thyroid disease. HEMATOLOGY/ONCOLOGY: Denies bleeding or clotting disorder. HEART: Denies any chest pains, palpitations, paroxysmal dyspnea, orthopnea. PULMONARY: Denies chronic cough, dyspnea and wheezing. GASTROINTESTINAL: Denies rectal bleeding, family history of colon cancer, constipation, diarrhea, dysphagia, heartburn and jaundice. GENITOURINARY: Denies dysuria, frequency, hematuria and nocturia. ENDOCRINE: Denies polydipsia, polyphagia, polyuria, heat or cold intolerance. INFECTIOUS: Denies any recent upper respiratory tract infection, UTI, need for use of antibiotics. NUTRITION: Reports good appetite. PHYSICAL EXAMINATION: VITALS SIGNS: Please see below. GENERAL APPEARANCE:Patient seen, laying in bed, awake, alert, and oriented. Comfortable, in no acute distress, appears nervous. SKIN: Warm and moist. Left forearm with open wound mid volar side 2.5cm round. Full granulating tissue, no drainage. Small area with packing superior to open wound and another one on the posterior forearm. Redness improving. No drainage. LUNGS: Clear to auscultation bilaterally. No wheezing appreciated. HEART: No chest wall abnormalities. Regular rate and rhythm with no murmurs appreciated. EXTREMITIES: Extremities have no deformities. No edema identified. No calf tenderness. LABORATORY DATA: Please see below. IMPRESSION: Left forearm with multiple abscesses, volar forearm with open wound. PLANS: healing well, no active drainage. Open wound is to be dressed with Xeroform dressing changes daily. Expected to close by secondary intention. Packing on the other two stab incisions may be removed tomorrow and bethadine/peroxide soaks could be initiated. continue with IV antibiotics. No sensory deficit. F/up plastic surgery for open wound f/up after discharge. Vital Signs Vital Signs Date Time Temp Pulse Resp B/P (MAP) Pulse Ox O2 Delivery O2 Flow Rate FiO2 11/12/20 15:57 18 11/12/20 14:00 97.4 76 101/49 (66) 99 Room Air I&Os I&O- Last 24 Hours up to 6 AM 11/12/20 06:00 Intake Total 1450 ml Output Total 610 ml Balance 840 ml Laboratory Data Labs 24H Laboratory Tests 2 11/12/20 08:28: Immature Granulocyte % (Auto) 0.5, Neutrophils (%) (Auto) 74.7H, Lymphocytes (%) (Auto) 19.6L, Monocytes (%) (Auto) 5.0, Eosinophils (%) (Auto) 0.0, Basophils (%) (Auto) 0.2, Neutrophils # (Auto) 9.0H, Lymphocytes # (Auto) 2.4, Monocytes # (Auto) 0.6, Eosinophils # (Auto) 0.0, Basophils # (Auto) 0.0, Nucleated Red Blood Cells % (auto) 0.0, Erythrocyte Sedimentation Rate 58H, Anion Gap 4L, Glomerular Filtration Rate > 60.0, Estimated Mean Plasma Glucose 103, Hemoglobin A1c 5.2, Calcium Level 8.4L, C-Reactive Protein, Quantitative 5.97H, Thyroid Stimulating Hormone (TSH) 0.172L 11/12/20 14:18: Vancomycin Level Trough 7.5L CBC/BMP Laboratory Tests 11/12/20 08:28 Microbiology Microbiology 11/11/20 Gram Stain - Final, Resulted 11/11/20 Abscess Culture, Resulted Pending 11/11/20 Anaerobic Culture, Resulted Pending 11/11/20 Wound Culture, Ordered Pending 11/11/20 Gram Stain, Ordered Pending 11/11/20 Wound Culture, Ordered Pending 11/11/20 Blood Culture - Preliminary, Resulted No growth after 24 hours . All specim... 11/11/20 Blood Culture - Preliminary, Resulted No growth after 24 hours . All specim... Home Medications Scheduled Methadone HCl (Methadone HCl) 10 Mg/1 Ml Oral.conc, 40 MG PO DAILY, (Reported) Allergies Coded Allergies: lithium (Verified Allergy, Mild, itching, rash, 06/08/20) SIRENA MARCOS DO Nov 12, 2020 18:16
--- NOTE | 2020-11-12 19:17 | IPNPDOC ---
Subjective Date Seen The patient was seen on 11/12/20. Subjective Chief Complaint/HPI Ms. Villela is a 25 year old female with IV drug use who is here with bilateral arm abscesses. This morning, she denies chest pain or dyspnea. Still has some pain in the surgical sight. I reached out to Dr. Squires for left arm wound, recommendations appreciated. Objective Physical Examination General Exam: Positive: Alert, Cooperative Eye Exam: Negative: Sclera icteric ENT Exam: Positive: Atraumatic Neck Exam: Positive: Supple Chest Exam: Positive: Clear to auscultation Heart Exam: Positive: Rate Normal, Regular Rhythm; Negative: Murmurs Abdomen Exam: Positive: Normal bowel sounds, Soft; Negative: Tenderness Extremity Exam: Negative: Edema Neuro Exam: Positive: Normal Speech Psych Exam: Positive: Mental status NL, Mood NL Assessment /Plan Assessment Ms. Villela is a 25 year old female with IV drug use who is here with bilateral arm abscesses. Orthopedic surgery, Dr. Lucero drained abscess. Abscess cultures currently pending. Plastic surgery, Dr. Squires was consulted for left arm wound, recommendations appreciated. Otherwise, will continue with Vancomycin until culture results return. Plan/VTE VTE Prophylaxis Ordered?: Yes Plan 1. Bilateral arm abscesses Most likely secondary to IV drug use No cardiac murmur auscultated Drained by orthopedic surgery, Dr. Lucero Wound culture currently pending Blood cultures x2 currently pending Continue IV vancomycin day [address] Dr. Squires consulted for left arm wound, recommendations appreciated Patient will need to follow-up with Dr. Squires outpatient. 2. IV drug abuse with heroin Continue patient with methadone 3. DVT ppx -TEDs Disposition: Pending culture results VS, I&O, 24H, [facility] Vital Signs/I&O Vital Signs Date Time Temp Pulse Resp B/P (MAP) Pulse Ox O2 Delivery O2 Flow Rate FiO2 11/12/20 18:00 98.8 71 18 131/77 (95) 100 Room Air I&O- Last 24 Hours up to 6 AM 11/12/20 06:00 Intake Total 1450 ml Output Total 610 ml Balance 840 ml Laboratory Data 24H LABS Laboratory Tests 2 11/12/20 08:28: Immature Granulocyte % (Auto) 0.5, Neutrophils (%) (Auto) 74.7H, Lymphocytes (%) (Auto) 19.6L, Monocytes (%) (Auto) 5.0, Eosinophils (%) (Auto) 0.0, Basophils (%) (Auto) 0.2, Neutrophils # (Auto) 9.0H, Lymphocytes # (Auto) 2.4, Monocytes # (Auto) 0.6, Eosinophils # (Auto) 0.0, Basophils # (Auto) 0.0, Nucleated Red Blood Cells % (auto) 0.0, Erythrocyte Sedimentation Rate 58H, Anion Gap 4L, Glomerular Filtration Rate > 60.0, Estimated Mean Plasma Glucose 103, Hemoglobin A1c 5.2, Calcium Level 8.4L, C-Reactive Protein, Quantitative 5.97H, Thyroid Stimulating Hormone (TSH) 0.172L 11/12/20 14:18: Vancomycin Level Trough 7.5L CBC/BMP Laboratory Tests 11/12/20 08:28 Microbiology Microbiology 11/11/20 Gram Stain - Final, Resulted 11/11/20 Abscess Culture, Resulted Pending 11/11/20 Anaerobic Culture, Resulted Pending 11/11/20 Wound Culture, Ordered Pending 11/11/20 Gram Stain, Ordered Pending 11/11/20 Wound Culture, Ordered Pending 11/11/20 Blood Culture - Preliminary, Resulted No growth after 24 hours . All specim... 11/11/20 Blood Culture - Preliminary, Resulted No growth after 24 hours . All specim... CARLOS CARLTON DO Nov 12, 2020 19:17
[2020-11-13] MEDS: SODIUM CHLORIDE 0.9% INJ 10 ML SYR IV PRN ×2 (00:23→22:39)
[2020-11-13] MEDS: KETOROLAC 30 MG/ML 1ML VIAL IV SCH ×4 (05:13→22:39)
[2020-11-13] MEDS: SODIUM CHLORIDE 0.9% INJ 10 ML SYR IV SCH ×2 (05:13→17:53)
[2020-11-13] MEDS: PERCOCET 5MG/325MG TAB PO PRN ×3 (05:14→17:52)
[2020-11-13 05:35] LABS: HEMATOCRIT 35.9 % (36.0-47.0); HEMOGLOBIN 11.7 g/dl (12.0-15.5); MEAN CORPUSCULAR HEMOGLOBIN 28.6 pg (27.0-33.0); MEAN CORPUSCULAR HGB CONC 32.6 g/dl (32.0-36.5); MEAN CORPUSCULAR VOLUME 87.8 fl (80.0-96.0); PLATELET COUNT, AUTOMATED 279 10^3/uL (150-450); RED BLOOD COUNT 4.09 10^6/uL (4.00-5.40); WHITE BLOOD COUNT 10.1 10^3/uL (4.0-10.0)
[2020-11-13 06:00] VITALS: BP 118/70
[2020-11-13] MEDS: VANCOMYCIN HCL 1,000 MG, VIAL MATE ADAPTER 1 EACH in NS 250 ML IV SCH ×3 (06:16→21:04)
[2020-11-13 06:25] LABS: BLOOD UREA NITROGEN 8 MG/DL (7-18); CALCIUM LEVEL 7.7 MG/DL (8.5-10.1); CARBON DIOXIDE LEVEL 26 MEQ/L (21-32); CHLORIDE LEVEL 114 MEQ/L (98-107); CREATININE FOR GFR 0.64 MG/DL (0.55-1.30); FREE T4 1.45 NG/DL (0.76-1.46); GLOMERULAR FILTRATION RATE > 60.0 (>60); GLUCOSE, FASTING 93 MG/DL (70-100); POTASSIUM SERUM 3.8 MEQ/L (3.5-5.1); SODIUM LEVEL 143 MEQ/L (136-145)
[2020-11-13] MEDS: METHADONE 10 MG TAB (S0109) PO SCH (08:25)
--- NOTE | 2020-11-13 09:29 | IPN ---
PROGRESS NOTE DATE: 11/12/2020 CHIEF COMPLAINT: Postop day one, multiple upper extremity abscesses, irrigation and debridement. HISTORY OF PRESENT ILLNESS: This is a 25-year-old female, intravenous drug user, presented with four day history of pain and swelling, multiple abscesses, upper extremities. We performed irrigation and debridement. She is seen [facility] postop irrigation and debridement. Overall, she is doing well, not complaining of any pain or other symptoms. No concerns from the nursing staff. PHYSICAL EXAM: A 25-year-old female. She appears comfortable. She is alert and oriented. Vital signs: She is afebrile, no tachycardia. Inspection of all the wounds of bilateral upper extremities revealed the redness and swelling to be diminishing at this point. The forearm compartments are soft as are the hand compartments on both sides. No spreading redness. Dressings removed, scant drainage. Strong radial pulses, normal sensation MRU. Laboratory examination reveals the white blood cell count to be trending down, 15.5 to 12.1, ESR 60 to 58 and CRP at 5.97. ASSESSMENT AND PLAN: This is a 25-year-old female. We will change the packing today. I communicated this directly to the nursing staff caring for the patient today. We will change the packing, change the bandages to gauze and loosely wrap Peter wrap. I will continue to follow the patient while they are inpatient. I have also asked for involvement of the infectious disease specialist as well as plastics for a small, approximately "quarter-sized" soft tissue defect on the volar forearm on the left side. I have asked the nursing staff to put order on the daily packing changing and dressing changes. I will discontinue the packing once the drainage slows down and stops. [facility]
--- NOTE | 2020-11-13 10:47 | IPNPDOC ---
Subjective Date Seen The patient was seen on 11/13/20. Subjective Chief Complaint/HPI Ms. Villela is a 25 year old female with IV drug use who is here with bilateral arm abscesses. This morning, she denies any chest pain or dyspnea. Still has some pain in the right arm. Preliminary read on the abscess culture is MRSA. Patient currently on vancomycin which will cover for MRSA. Pending final read on abscess culture Objective Physical Examination General Exam: Positive: Alert, Cooperative Eye Exam: Negative: Sclera icteric ENT Exam: Positive: Atraumatic Neck Exam: Positive: Supple Chest Exam: Positive: Clear to auscultation Heart Exam: Positive: Rate Normal, Regular Rhythm; Negative: Murmurs Abdomen Exam: Positive: Normal bowel sounds, Soft; Negative: Tenderness Extremity Exam: Negative: Edema Neuro Exam: Positive: Normal Speech Psych Exam: Positive: Mental status NL, Mood NL Assessment /Plan Assessment Ms. Villela is a 25 year old female with IV drug use who is here with bilateral arm abscesses. Orthopedic surgery, Dr. Lucero drained abscess, on 11/11. Plastic surgery, Dr. Squires was consulted for left arm wound, recommendations appreciated. Otherwise, abscess culture preliminary read demonstrates MRSA. Pending final read. Anaerobic culture negative Plan/VTE VTE Prophylaxis Ordered?: Yes Plan 1. Bilateral arm abscesses Most likely secondary to IV drug use No cardiac murmur auscultated. Blood cultures x2 currently pending Drained by orthopedic surgery, Dr. Lucero Wound culture preliminary result grew MRSA. Pending final result Continue IV vancomycin day 2 Dr. Squires consulted for left arm wound, recommendations appreciated 2. IV drug abuse with heroin Continue patient with methadone 3. DVT ppx -TEDs Disposition: Pending final abscess culture results VS, I&O, 24H, Fishbone Vital Signs/I&O Vital Signs Date Time Temp Pulse Resp B/P (MAP) Pulse Ox O2 Delivery O2 Flow Rate FiO2 11/13/20 09:23 18 11/13/20 06:00 97.9 81 118/70 (86) 97 Room Air I&O- Last 24 Hours up to 6 AM 11/13/20 06:00 Intake Total 3495 ml Output Total 625 ml Balance 2870 ml Laboratory Data 24H LABS Laboratory Tests 2 11/12/20 14:18: Vancomycin Level Trough 7.5L 11/13/20 05:16: Anion Gap 3L, Glomerular Filtration Rate > 60.0, Calcium Level 7.7L, Thyroid Stimulating Hormone (TSH) 1.670, Free Thyroxine 1.45 11/13/20 05:18: Nucleated Red Blood Cells % (auto) 0.0 CBC/BMP Laboratory Tests 11/13/20 05:16 11/13/20 05:18 Microbiology Microbiology 11/11/20 Gram Stain - Final, Resulted 11/11/20 Abscess Culture - Preliminary, Resulted Staph.aureus Methicillin Resis 11/11/20 Anaerobic Culture - Final, Resulted 11/11/20 Wound Culture, Ordered Pending 11/11/20 Gram Stain, Ordered Pending 11/11/20 Wound Culture, Ordered Pending 11/11/20 Blood Culture - Preliminary, Resulted No Growth after 48 hours. All Specime... 11/11/20 Blood Culture - Preliminary, Resulted No Growth after 48 hours. All Specime... CARLOS CARLTON DO Nov 13, 2020 10:47
[2020-11-13 11:14] LABS: TOTAL T3 77.2 NG/DL (60.0-181.0)
[2020-11-13 22:00] VITALS: BP 117/66
[2020-11-14] MEDS: VANCOMYCIN HCL 1,000 MG, VIAL MATE ADAPTER 1 EACH in NS 250 ML IV SCH (03:14)
[2020-11-14] MEDS: SODIUM CHLORIDE 0.9% INJ 10 ML SYR IV PRN (04:18)
[2020-11-14] MEDS: KETOROLAC 30 MG/ML 1ML VIAL IV SCH ×3 (04:18→17:11)
[2020-11-14] MEDS: SODIUM CHLORIDE 0.9% INJ 10 ML SYR IV SCH (05:17)
[2020-11-14 05:23] VITALS: BP 117/67
[2020-11-14 05:40] LABS: HEMATOCRIT 35.3 % (36.0-47.0); HEMOGLOBIN 11.5 g/dl (12.0-15.5); MEAN CORPUSCULAR HEMOGLOBIN 28.7 pg (27.0-33.0); MEAN CORPUSCULAR HGB CONC 32.6 g/dl (32.0-36.5); PLATELET COUNT, AUTOMATED 268 10^3/uL (150-450); RED BLOOD COUNT 4.01 10^6/uL (4.00-5.40)
[2020-11-14 05:59] LABS: ERYTHROCYTE SEDIMENTATION RATE 56 mm/hr (0-20)
[2020-11-14 06:04] LABS: BLOOD UREA NITROGEN 10 MG/DL (7-18); C REACTIVE PROTEIN QUANTITATIV 1.22 MG/DL (0.00-0.30); CALCIUM LEVEL 7.8 MG/DL (8.5-10.1); CARBON DIOXIDE LEVEL 26 MEQ/L (21-32); CHLORIDE LEVEL 111 MEQ/L (98-107); CREATININE FOR GFR 0.47 MG/DL (0.55-1.30); GLOMERULAR FILTRATION RATE > 60.0 (>60); GLUCOSE, FASTING 93 MG/DL (70-100); POTASSIUM SERUM 4.2 MEQ/L (3.5-5.1); SODIUM LEVEL 141 MEQ/L (136-145)
[2020-11-14] MEDS: METHADONE 10 MG TAB (S0109) PO SCH (07:53)
[2020-11-14] MEDS: PERCOCET 5MG/325MG TAB PO PRN (07:53)
--- NOTE | 2020-11-14 08:48 | REP ---
INDICATION: Left armpit mass/ swelling; pt with PICC COMPARISON: Limited ultrasound dated 11/11/2020 TECHNIQUE: Real time B-mode and Doppler ultrasound examination using linear high-frequency transducer. FINDINGS: Left upper extremity is without evidence for venous thrombosis. A 2.9 x 1.3 x 2.8 cm complex fluid collection is identified in the left axilla suspicious for phlegmon/forming abscess.. Right upper extremity is without evidence for venous thrombosis. PICC line identified in the basilic and axillary vein. IMPRESSION: 1. No evidence for venous thrombosis bilaterally. 2. Complex collection in the left axilla suggesting phlegmon/abscess. <Electronically signed by Kobe Dominguez > 11/14/20 [id number]
[2020-11-14] MEDS ORDERED: VANCOMYCIN HCL 1,000 MG, VIAL MATE ADAPTER 1 EACH in NS 250 ML IV SCH (09:00)
[2020-11-14 14:00] VITALS: BP 124/76
[2020-11-14] MEDS ORDERED: ISOVUE-370 76% 100ML VIAL As Ordered ONE (14:02)
--- NOTE | 2020-11-14 15:04 | REPVR ---
PROCEDURE INFORMATION: Exam: CT Neck With Contrast Exam date and time: 11/14/2020 2:33 PM Age: 25 years old Clinical indication: Other: Pain, iv drug use with abscess in arms, abcess neck? TECHNIQUE: Imaging protocol: Computed tomography images of the neck with contrast. Radiation optimization: All CT scans at this facility use at least one of these dose optimization techniques: automated exposure control; mA and/or kV adjustment per patient size (includes targeted exams where dose is matched to clinical indication); or iterative reconstruction. Contrast material: ISOVUE 370; Contrast volume: 75 ml; Contrast route: INTRAVENOUS (IV); COMPARISON: CR Chest, 1 view 06/08/2020 11:31 PM FINDINGS: Brain: The included brain is within normal limits. Orbital cavity: The orbits are intact. No focal cellulitis. Mastoid air cells: Mastoids are well aerated. Paranasal sinuses: Air-fluid level in the left maxillary sinus could be due to blood or acute sinusitis. Nasopharynx: Unremarkable. Dental: Unerupted wisdom teeth along both sides of the maxilla. Artifact from patient's dental hardware. Oropharynx: Prominent parapharyngeal soft tissues posteriorly is a normal finding in this age group. Hypopharynx: Unremarkable. Larynx: Unremarkable. Normal epiglottis. Retropharyngeal space: Unremarkable. Submandibular/Parotid glands: Normal. Glands are normal in size. Thyroid: Homogeneous thyroid. Lymph nodes: No lymphadenopathy. Trachea: Visualized trachea is unremarkable. Lungs: The visualized lungs are clear. Bones/joints: No acute fracture or bony erosive change in the spine. Vasculature: No venous thrombus. Soft tissues: No rim enhancing abscess. IMPRESSION: No dominant mass, abscess, or lymphadenopathy. Electronically signed by: Obinna Horowitz On 11/14/2020 15:04:10 PM
[2020-11-14] MEDS ORDERED: BACTDSTA PO (17:06)
--- NOTE | 2020-11-14 17:19 | CR ---
CONSULTATION DATE: 11/14/2020 Asked to consult by Dr. Sam for evaluation of bilateral forearm abscesses with polymicrobial ramiro. HISTORY OF PRESENT ILLNESS: Celio Ellis is a 25-year-old female with a history of intravenous (IV) heroin abuse who presented to the emergency room with a 5-day history of multiple forearm abscesses with purulent discharge and pain. She denied having any fever or chills. The worst abscesses were on the left forearm, measuring about a quarter size. She uses her forearm to injected IV heroin. She was taken to the operating room (OR) by Dr. Lucero for incision and drainage (I and D). MEDICAL HISTORY: Significant for: 1. Bipolar disorder. 2. Anxiety. 3. Depression. 5. Heroin abuse. 6. Tobacco abuse. 7. Suicide attempt in May 2020. 8. History of hepatitis C with spontaneous remission with negative hepatitis C RNA June 09. SURGICAL HISTORY: Negative. SOCIAL HISTORY: She lives with a roommate. She is going to [employer] [place] and has been on methadone but relapsed while on methadone. FAMILY HISTORY: Mother and father are healthy. ALLERGIES: LITHIUM. MEDICATIONS: - vancomycin 1 gram IV every 8 hours - methadone 40 mg daily - ketorolac 30 mg IV every 6 hours - Percocet as needed LABORATORY DATA: White count 10, down from 15.5 on admission, hemoglobin 11.5, hematocrit 35.3, platelets 268. ESR 56, down from 60. Sodium 141, potassium 4.2, chloride 111, bicarbonate 26, BUN 10, creatinine 0.47, glucose 93, calcium 7.8. CRP 1.22, down from 8.68. Wound culture positive for methicillin-resistant Staphylococcus aureus (MRSA), Enterobacter (E) cloacae, Citrobacter freundii. Blood cultures, two sets, were negative. IMAGING: CT on November 14: No dominant mass, abscess, or lymphadenopathy. Vascular ultrasound: Left upper extremity without thrombosis. A 2.9 x 2.8 cm complex fluid collection at the left axilla suspicious for phlegmon/forming abscess. Declined in the right arm. Upper extremity CT: Severe cellulitis with multiloculated, peripherally enhancing lesions along the dorsal medial hand. No soft tissue gas. PHYSICAL EXAMINATION: She is a pleasant, healthy looking female in acute distress. Temperature 97.6, pulse 74, respirations 18, blood pressure 124/76, oxygen saturation 100% on room air. HEART: Normal S1, s2. No murmurs, rubs, or gallops. LUNGS: Clear. No wheezes, rales, or rhonchi. ABDOMEN: Soft, nontender. No hepatosplenomegaly. EXTREMITIES: No clubbing, cyanosis, or edema. No calf tenderness. Forearm, left side, has on the forearm at least three different ulcers where previous abscesses have been. There is granulation tissue. They measure about 3 x 2 cm.. There is a smaller abscess around the wrist that is scabbed over. Two smaller scabs on the right forearm that have healed. IMPRESSION: 1. Multiloculated abscesses at the site of IV drug abuse. The cultures are positive for methicillin-resistant Staphylococcus aureus (MRSA), Enterobacter cloacae, and Citrobacter, all susceptible to Bactrim. Patient clinically markedly improved and could be switched to oral antibiotics with Bactrim DS one tablet twice a day for 7 days. 2. History of hepatitis C with undetectable viral load in May 2020. Patient seems to have spontaneous remissions, as she has had multiple episodes of viremia followed by undetectable viral load without any treatment. Her last HIV test and hepatitis C RNA done were in May, and she will need repeat testing done today through her peripherally inserted central catheter (PICC) line. PLAN: Discontinue IV vancomycin. Switch to Bactrim DS one twice a day for 7 days. The patient currently does not have evidence of hepatitis C. She does not viremia. If her hepatitis C RNA is positive, then she could be followed up at my office to cure her hepatitis C.
[2020-11-14] MEDS ORDERED: BACTRIM 160MG/800MG DS TAB PO SCH (21:00)
--- NOTE | 2020-11-14 23:41 | DS.PDOC ---
Discharge Summary General Date of Admission Nov 11, 2020 at 08:21 Date of Discharge Nov 14, 2020 Specialist/Consultants Involve Orthopedic surgery: Dr. Lucero Plastic surgery: Dr. Squires ID: Dr. Blake Discharge Summary PROCEDURES PERFORMED DURING STAY: Bilateral upper extremity irrigation and debridement by Dr. Lucero on 11/11/20 ADMITTING DIAGNOSES: 1. Bilateral arm abscesses 2. IV drug abuse with heroin 3. History of hepatitis C untreated DISCHARGE DIAGNOSES: 1. Bilateral arm abscesses 2. IV drug abuse with heroin 3. History of hepatitis C untreated COMPLICATIONS/CHIEF COMPLAINT: Abscess Of Right Hand. HISTORY OF PRESENT ILLNESS: Copied from admitting provider's H&P " 25-year-old female with history IV drug use with heroin active tobacco use less than 1/2 pack/day for 2 years presents emergency room with 4 to 5-day history of abscesses forming in bilateral forearms with purulence and ulcer formation patient denies any fever chills initially noted on the left medial forearm to be about dime size red painful and swollen then progressed onto the upper arm hand and involving the right forearm as well. Patient is an IV drug user with heroin and has been taking Tylenol and ibuprofen without improvement she presented to the emergency room was found to have cellulitis and bilateral multiple abscesses involving both forearms and the right dorsum of the hand. Or thopedic surgeon Dr. Lucero has been consulted and agrees with irrigation debridement in the operating room. Patient has been kept n.p.o. and started on IV fluids. However, during the IV contrast study patient lost her IV access. PICC line ordered .RN unable to place any other line. anesthesia has been consulted to place a line in. " HOSPITAL COURSE: Dr. Lucero obtained cultures from the abscess and performed debridement. Dr. Lucero requested plastic surgery, Dr. Squires, for wound care and ID, Dr. Blake, for infection. Dr. Squires saw patient and made wound care recommendations. Patient's wound culture grew MRSA, Enterobacter cloacae, and Citrobacter. ID recommended Bactrim DS for another 7 days. Otherwise, patient has a history of untreated hepatitis C which resolves and reappears. Dr. Blake ordered for a repeat hepatitis C labs and HIV labs prior to discharge. Patient today felt well and felt ready for home. Otherwise in her left armpit, there is an small phlegmon/abscess about 2cm in size. She brought it up today, but says it started the same time as her forearm abscesses. I spoke with general surgery. No need to aspirate as it was <4cm. Recommended continuing antibiotics. Patient was anxious to go home and was discharged home today with oral antibiotics DISCHARGE MEDICATIONS: Please see below. ALLERGIES: Please see below. PHYSICAL EXAMINATION ON DISCHARGE: VITAL SIGNS: Please see below. GENERAL: Comfortable, in no apparent distress HEENT: Head normocephalic, atraumatic NECK: Supple CARDIOVASCULAR EXAMINATION: Regular rate and rhythm RESPIRATORY EXAMINATION: Lungs clear to auscultation bilaterally ABDOMINAL EXAMINATION: Soft, non-tender, normal bowel sounds EXTREMITIES: No pitting edema bilaterally PSYCHIATRIC EXAMINATION: Normal mood and affect LABORATORY DATA: Please see below. IMAGING: Radiologist interpretation CT right upper extremity with contrast Severe cellulitis with multiloculated peripherally enhancing collection along the dorsal medial hand. No soft tissue gas. Additional peripherally enhancing fluid pocket along the radial distal arm. No soft tissue gas. PROGNOSIS: Good ACTIVITY: As tolerated. DIET: As tolerated DISCHARGE PLAN: Home DISPOSITION: Home, Self-Care. DISCHARGE INSTRUCTIONS: 1. Follow up with PCP in 1 week 2. Follow up with Plastic surgery in 1 week 3. Follow up with ID in 1 week ITEMS TO FOLLOWUP ON ON OUTPATIENT: 1. HIV and hepatitis C results DISCHARGE CONDITION: Stable Total time spent on discharge planning, discharge summary, and medication reconciliation: 55 minutes Vital Signs/I&Os Vital Signs Date Time Temp Pulse Resp B/P (MAP) Pulse Ox O2 Delivery O2 Flow Rate FiO2 11/14/20 14:00 97.6 74 18 124/76 (92) 100 Room Air I&O- Last 24 Hours up to 6 AM 11/14/20 06:00 Intake Total 1530 ml Balance 1530 ml Laboratory Data Labs 24H Laboratory Tests 2 11/14/20 05:22: Nucleated Red Blood Cells % (auto) 0.0, Erythrocyte Sedimentation Rate 56H, Anion Gap 4L, Glomerular Filtration Rate > 60.0, Calcium Level 7.8L, C-Reactive Protein, Quantitative 1.22H 11/14/20 07:52: Vancomycin Level Trough 17.9 11/14/20 17:10: HIV Antigen/Antibody Combo Qual NEGATIVE CBC/BMP Laboratory Tests 11/14/20 05:22 Microbiology Microbiology 11/11/20 Gram Stain - Final, Complete 11/11/20 Abscess Culture - Final, Complete Staph.aureus Methicillin Resis Enterobacter Cloacae Complex Citrobacter Freundii 11/11/20 Anaerobic Culture - Final, Complete 11/11/20 Blood Culture - Preliminary, Resulted No Growth after 72 hours. All specime... 11/11/20 Blood Culture - Preliminary, Resulted No Growth after 72 hours. All specime... Discharge Medications Scheduled Methadone HCl (Methadone HCl) 10 Mg/1 Ml Oral.conc, 40 MG PO DAILY, (Reported) Sulfamethoxazole/Trimethoprim (Sulfamethoxazole-Tmp Ds Tablet) 1 Each Tablet, 1 TAB PO BID Allergies Coded Allergies: lithium (Verified Allergy, Mild, itching, rash, 06/08/20) CARLOS CARLTON DO Nov 14, 2020 23:41
--- NOTE | 2020-11-17 21:50 | REP ---
INDICATION: ivdu lost iv access iv vanco. COMPARISON: None. TECHNIQUE: The procedure was performed under the direct supervision of Dr. Kiran. The risks and benefits of the procedure were explained to the patient and informed consent was obtained. The right basilic vein was localized using ultrasound guidance. The skin was prepped and draped in a sterile fashion. 1 mL of 1% lidocaine was used as a local anesthetic. Using ultrasound guidance the basilic vein was cannulated and a 0.018 guidewire was inserted and advanced to the SVC using fluoroscopic guidance, and last image hold technology. The needle was removed and a 5 Sammar[place] dilator and peel-away sheath was inserted over the guide wire. A 5 [place] dual lumen catheter was cut to length of 39 cm. The dilator was removed and the catheter was inserted over the guide wire with the tip ending in the SVC. The peel-away sheath was removed and the catheter was flushed with heparinized saline as per Hospital protocol. The catheter was affixed to the skin and a sterile dressing was applied. Estimated blood loss: Less than 1 mL 0.1 minutes of fluoro time was utilized for this procedure. FINDINGS: None IMPRESSION: PICC line insertion right basilic vein with the tip ending in the SVC. <Electronically signed by Rao Kelly > 11/11/20 [id number] <Electronically signed by Jeevan Kiran > 11/17/20 [id number]
[2020-11-19 14:10] LABS: HEPATITIS C QUANTITATION 500 IU/mL (.)
== END 2020-11-14 18:46 | disposition home or self-care (01) | DRG 364 ==
LOC: M ED 02:10 → M ED INP 08:21 → ENRESERV 08:28 → M MSPAV 10:10
PROVIDERS: ADMIT General Practice; ATTEND Internal Medicine
PROC: 0H9FXZZ Drainage of Right Hand Skin, External Approach (ICD-10-PCS; 2020-11-11)
PROC: 0H9DXZZ Drainage of Right Lower Arm Skin, External Approach (ICD-10-PCS; 2020-11-11)
PROC: 0J9H0ZZ Drainage of Left Lower Arm Subcutaneous Tissue and Fascia, Open Approach (ICD-10-PCS; 2020-11-11)
PROC: 02HV33Z Insertion of Infusion Device into Superior Vena Cava, Percutaneous Approach (ICD-10-PCS; principal; 2020-11-11 15:00)
DX: L02.413 Cutaneous abscess of right upper limb (principal); L02.414 Cutaneous abscess of left upper limb; F11.10 Opioid abuse, uncomplicated; F31.9 Bipolar disorder, unspecified; F17.210 Nicotine dependence, cigarettes, uncomplicated; F41.9 Anxiety disorder, unspecified; Z91.5 Personal history of self-harm; I80.9 Phlebitis and thrombophlebitis of unspecified site; B19.20 Unspecified viral hepatitis C without hepatic coma; Z20.822 Contact with and (suspected) exposure to COVID-19; Z88.8 Allergy status to other drugs, medicaments and biological substances; Z79.899 Other long term (current) drug therapy; B95.62 Methicillin resistant Staphylococcus aureus infection as the cause of diseases classified elsewhere

== ENCOUNTER 2020-11-16 14:39 | Emergency (ER) | payer OTHER ==
[~2020-11-16] VITALS: Ht 172.7 cm; Wt 68.3 kg
[~2020-11-16 14:39] MED LIST changes: +BACTDSTA PO; +METH10CO PO
[2020-11-16] MEDS ORDERED: METHADONE 10 MG TAB (S0109) PO ONE (18:05)
[2020-11-16 18:28] VITALS: BP 116/71
== END 2020-11-16 18:28 | disposition home or self-care (01) ==
LOC: M ED 14:39
DX: F19.10 Other psychoactive substance abuse, uncomplicated (principal); Z76.89 Persons encountering health services in other specified circumstances; J45.909 Unspecified asthma, uncomplicated; Z86.19 Personal history of other infectious and parasitic diseases; M54.9 Dorsalgia, unspecified; F41.9 Anxiety disorder, unspecified; F31.89 Other bipolar disorder; F17.200 Nicotine dependence, unspecified, uncomplicated; Z79.899 Other long term (current) drug therapy; Z88.8 Allergy status to other drugs, medicaments and biological substances

== ENCOUNTER 2021-07-05 18:03 | Emergency (ER) | payer OTHER ==
[~2021-07-05] VITALS: Ht 172.7 cm; Wt 80.3 kg
[~2021-07-05 18:03] MED LIST changes: -CEFD1CAP8 PO; +CEFD300C41 PO
[2021-07-05 20:14] LABS: BASO % 0.3 % (0.0-1.0); EOS # 0.1 10^3/uL (0.0-0.5); EOS % 0.6 % (0.0-3.0); HEMATOCRIT 42.4 % (36.0-47.0); HEMOGLOBIN 14.5 g/dl (12.0-15.5); LYMPH # 2.5 10^3/uL (1.5-5.0); LYMPH % 24.9 % (24.0-44.0); MEAN CORPUSCULAR HEMOGLOBIN 30.6 pg (27.0-33.0); MEAN CORPUSCULAR HGB CONC 34.2 g/dl (32.0-36.5); MEAN CORPUSCULAR VOLUME 89.5 fl (80.0-96.0); MONO # 0.6 10^3/uL (0.0-0.8); MONO % 6.1 % (2.0-8.0); NEUTROPHILS # 6.8 10^3/uL (1.5-8.5); NEUTROPHILS % 67.7 % (36.0-66.0); PLATELET COUNT, AUTOMATED 239 10^3/uL (150-450); RED BLOOD COUNT 4.74 10^6/uL (4.00-5.40); WHITE BLOOD COUNT 10.1 10^3/uL (4.0-10.0)
[2021-07-05 20:40] LABS: BLOOD UREA NITROGEN 15 MG/DL (7-18); C REACTIVE PROTEIN QUANTITATIV 3.26 MG/DL (0.00-0.30); CALCIUM LEVEL 8.8 MG/DL (8.5-10.1); CARBON DIOXIDE LEVEL 29 MEQ/L (21-32); CHLORIDE LEVEL 106 MEQ/L (98-107); CREATININE FOR GFR 0.66 MG/DL (0.55-1.30); GLOMERULAR FILTRATION RATE > 60.0 (>60); GLUCOSE, FASTING 74 MG/DL (70-100); POTASSIUM SERUM 4.4 MEQ/L (3.5-5.1); SODIUM LEVEL 139 MEQ/L (136-145)
[2021-07-05 20:45] LABS: ERYTHROCYTE SEDIMENTATION RATE 35 mm/hr (0-20)
[2021-07-05] MEDS ORDERED: DALBAVANCIN 1,500 MG in D5W 250 ML IV ONE ×3 (21:15→21:45)
[2021-07-05 22:31] VITALS: BP 136/70
[2021-07-05] MEDS ORDERED: KETOROLAC 30 MG/ML 1ML VIAL IV ONE (22:40)
[2021-07-05] MEDS ORDERED: diphenhydrAMINE 50MG/ML VIAL (J1200) IV STA (23:25)
[2021-07-05] MEDS ORDERED: diphenhydrAMINE 50MG/ML VIAL (J1200) As Ordered ONE (23:27)
[2021-07-05 23:50] LABS: GC DNA AMPLIFICATION NEGATIVE (NEGATIVE)
== END 2021-07-05 23:47 | disposition left against medical advice (07) ==
LOC: M ED 18:03
DX: L03.115 Cellulitis of right lower limb (principal); Z53.9 Procedure and treatment not carried out, unspecified reason; F11.10 Opioid abuse, uncomplicated; Z86.14 Personal history of Methicillin resistant Staphylococcus aureus infection; F17.200 Nicotine dependence, unspecified, uncomplicated; Z79.899 Other long term (current) drug therapy; Z88.8 Allergy status to other drugs, medicaments and biological substances
CPT/HCPCS: 80048; 83605; 84145; 84702; 85025; 85652; 86140; 87040; 87661; 87810; 87850; 93971; 96365; 96375; 99284; J0875; J1885

== ENCOUNTER 2021-07-15 08:00 | Emergency (ER) | payer OTHER ==
[~2021-07-15] VITALS: Ht 172.7 cm; Wt 81.8 kg
[2021-07-15 08:01] VITALS: BP 104/71
[2021-07-15] MEDS ORDERED: PYRI1TAB5 PO (08:59)
[2021-07-15] MEDS ORDERED: MACR100C43 PO (08:59)
== END 2021-07-15 09:09 | disposition home or self-care (01) ==
LOC: M ED 08:00
DX: N30.00 Acute cystitis without hematuria (principal); F11.20 Opioid dependence, uncomplicated; F17.200 Nicotine dependence, unspecified, uncomplicated; Z79.899 Other long term (current) drug therapy; Z88.8 Allergy status to other drugs, medicaments and biological substances

== ENCOUNTER → 2021-12-16 | Outpatient (CLI) | payer OTHER ==
[~2021-12-16] MED LIST changes: +ETON68IM SC; -NEXP1IMP SC
== END ==
LOC: M LABSMTC 10:09
PROVIDERS: ATTEND Family Medicine
DX: Z20.822 Contact with and (suspected) exposure to COVID-19 (principal)

== ENCOUNTER 2022-03-03 18:16 | Emergency (ER) | payer OTHER ==
[~2022-03-03] VITALS: Ht 172.7 cm; Wt 80.3 kg
[2022-03-03 18:16] VITALS: BP 132/76
[2022-03-03] MEDS ORDERED: BACTDSTA (19:36)
[2022-03-03] MEDS ORDERED: IBUPROFEN 800 MG TAB PO ONE (21:45)
[2022-03-03] MEDS ORDERED: LIDOCAINE W/EPINEPHRINE 1% 20ML VIAL SC ONE (21:45)
== END 2022-03-03 22:46 | disposition home or self-care (01) ==
LOC: M ED 18:16
DX: L02.31 Cutaneous abscess of buttock (principal); Z88.8 Allergy status to other drugs, medicaments and biological substances; Z79.899 Other long term (current) drug therapy

== ENCOUNTER 2022-05-20 20:35 | Emergency (ER) | payer OTHER ==
[~2022-05-20] VITALS: Ht 172.7 cm; Wt 68.2 kg
[~2022-05-20 20:35] MED LIST changes: +BACTDSTA
[2022-05-20 20:36] VITALS: BP 121/67
[2022-05-20 21:44] LABS: APPEARANCE, URINE HAZY (CLEAR); BACTERIA, URINE AUTO 1+ (NEGATIVE); BILIRUBIN, URINE AUTO NEGATIVE (NEGATIVE); BLOOD, URINE BLOOD 3+ (NEGATIVE); COLOR, URINE YELLOW (YELLOW); GLUCOSE, URINE (UA) AUTO NEGATIVE (NEGATIVE); KETONE, URINE AUTO NEGATIVE (NEGATIVE); LEUKOCYTE ESTERASE, URINE AUTO NEGATIVE (NEGATIVE); MUCUS, URINE SMALL (NEGATIVE); NITRITE, URINE AUTO NEGATIVE (NEGATIVE); PROTEIN, URINE AUTO 1+ mg/dL (NEGATIVE); RBC, URINE AUTO 3 /HPF (0-3); SQUAMOUS EPITHELIAL CELL UR AU 4 /HPF (0-6); WBC, URINE AUTO 4 /HPF (0-3)
[2022-05-20 23:00] LABS: GC DNA AMPLIFICATION NEGATIVE (NEGATIVE)
== END 2022-05-21 01:55 | disposition left against medical advice (07) ==
LOC: M ED 20:35
DX: Z53.21 Procedure and treatment not carried out due to patient leaving prior to being seen by health care provider (principal)

== ENCOUNTER 2024-03-04 14:30 | Emergency (ER) | payer MEDICAID, OTHER ==
[~2024-03-04] VITALS: Ht 172.7 cm; Wt 85.9 kg
[~2024-03-04 14:30] MED LIST changes: +CEFD1CAP9 PO; -CEFD300C41 PO; +ONDA-282 PO; -ONDA4TAB6 PO
[2024-03-04 16:20] VITALS: BP 127/84; TEMP 97.5; O2SAT 99
[2024-03-04] MEDS ORDERED: MUPI2OI TOP (16:46)
[2024-03-04] MEDS ORDERED: VALA1TAB5 PO (16:46)
== END 2024-03-04 16:52 | disposition home or self-care (01) ==
LOC: M ED 14:30
DX: B00.89 Other herpesviral infection (principal); F17.290 Nicotine dependence, other tobacco product, uncomplicated; Z88.8 Allergy status to other drugs, medicaments and biological substances

== ENCOUNTER → 2024-03-08 | Outpatient (REF) ==
[~2024-03-08] MED LIST changes: +MUPI2OI TOP; +VALA1TAB5 PO
== END ==
LOC: M LAB 13:48
PROVIDERS: ATTEND Pathology Forensic Pathology
DX: Z01.89 Encounter for other specified special examinations (principal)

== ENCOUNTER → 2024-03-08 | Outpatient (REF) | LOC: M LAB 13:26 | PROVIDERS: ATTEND Pathology Forensic Pathology | DX: Z01.89 Encounter for other specified special examinations (principal) ==